=== PATIENT | female | born 1970 | race Caucasian/White ===

== ENCOUNTER → 2023-11-17 | Outpatient (CLI) | payer OTHER, SELFPAY ==
--- NOTE | 2023-11-17 11:49 | RAD_ITS ---
INDICATION: PAIN EXAMINATION/TECHNIQUE: X-RAY - XR Pelvis 1 or 2 Views COMPARISON: None. FINDINGS: PELVIC BONES: No displaced fracture, destructive or sclerotic lesions. Note that overlapping bowel shadows may however obscure fine detail. Sacroiliac joints are unremarkable. No widening of the pubic symphysis. HIPS: Hip joint spaces well-maintained bilaterally. No displaced fracture seen in this frontal view. SOFT TISSUES: No soft tissue swelling or gas. RAD/Pelvis 1 or 2 Views IMPRESSION: Unremarkable study. Electronically Signed: Micha Stock MD at 20:31 EDT ,
[2023-11-17 16:15] LABS: Absolute Lymphocyte Count 1.88 X10^3/uL (0.83-4.51); Absolute Neutrophil Count 3.3 X10^3/uL (2.0-7.7); Basophil# 0.05 X10^3/uL; Basophil% 0.9 % (0-1); Eosinophil# 0.06 X10^3/uL; Eosinophils% 1.1 % (0-5); Hematocrit 38.3 % (37-47); Hemoglobin 12.2 g/dL (12.0-15.0); Lymphocyte # 1.88 X10^3/ul (0.83-4.51); Lymphocyte % 33.7 % (19-41); Mean Corp Hgb Conc 31.9 g/dL (32-36); Mean Corpuscular Hgb 29.3 pg (27.0-32.0); Mean Corpuscular Volume 91.8 fL (81-99); Mean Platelet Vol. 10.4 fl (6.2-12.0); Monocyte# 0.31 X10^3/uL; Monocyte% 5.6 % (0-10); NRBC Flagged by Analyzer 0 % (0-5); Neutrophil # 3.26 X10^3/uL (2.7-7.7); Neutrophil % 58.3 % (47-70); Platelet Count 292 K/mm3 (150-450); RBC Distribution Width CV 13.8 % (11.6-14.6); RBC Distribution Width SD 46.5 fl (35.1-43.9); Red Blood Count 4.17 M/mm3 (4.2-5.4); White Blood Count 5.6 K/mm3 (4.4-11.0)
[2023-11-17 16:20] LABS: ALB/GLOB Ratio 1.2 RATIO (0.9-2.4); AST(SGOT) 13 U/L (15-37); Alanine Aminotransfer ALT/SGPT 20 U/L (13-56); Albumin, Serum 3.7 g/dL (3.2-5.0); Alkaline Phosphatase 54 U/L (45-117); Anion Gap 4 (5-15); BUN 14 mg/dL (7-18); BUN/Creat Ratio 20.6 RATIO (10-20); Calcium,Total 9.1 mg/dL (8.5-10.1); Chloride 106 mmol/L (98-107); Creatinine, Serum 0.68 mg/dL (0.55-1.02); EST Glomerular Filtration Rate 97 mL/min (>60); Est Glom Filt Rate - Afr Amer 117 mL/min (>60); Globulin 3.2 g/dL (2.2-4.2); Glucose 65 mg/dL (74-106); Potassium 3.8 mmol/L (3.5-5.1); Protein, Total 6.9 g/dL (6.4-8.2); Rheumatoid Factor < 10.0 IU/mL (<15); Sodium Level 140 mmol/L (136-145)
[2023-11-17 16:58] LABS: Hepatitis B Surface Antibody Non-Reactive; Hepatitis B Surface Antigen Non-Reactive (Nonreactive); Hepatitis C Antibody Non-Reactive (Nonreactive)
--- OUTSIDE RECORDS SUMMARY | 2023-11-17 19:32 | XMS RPT_ITS | CCD ---
Author Organization [facility] Care Team Providers Care Buffer Inflated Pad Name Role Phone Ryder LEWIS Admitting Unavailable Ryder LEWIS Primary Care Unavailable Ryder LEWIS Consulting Unavailable Ryder LEWIS Attending Unavailable PROVIDER, UNKNOWN Consulting Unavailable PROVIDER, UNKNOWN Consulting Unavailable PROVIDER, UNKNOWN Consulting Unavailable THAD FARIAS Admitting Unavailable THAD FARIAS Primary Care Unavailable THAD FARIAS Attending Unavailable Ryder LEWIS Consulting Unavailable PROVIDER, UNKNOWN Consulting Unavailable PROVIDER, UNKNOWN Consulting Unavailable PROVIDER, UNKNOWN Consulting Unavailable EMA RAGLAND Attending Patience vailable Ryder LEWIS MD Unavailable CARLOZ PÉREZ Unavailable [place] Unavailable Unavailable Bladimir WEI MD Unavailable Fran RIOS, Dayna Unavailable Unavailable TRISTON REY MD Unavailable Jennifer Shine Unavailable Unavailable JAREK TTAE, JIMENEZ Paulson Unavailable TANIA RIOS, ANAIS Unavailable Unavailable Laly RIOS, Sultana Unavailable Unavailab NISHANT Valiente Unavailable Unavailable EMA CARLSON Unavailable [phone] ANITRA WEI Unavailable Unavailable Michelle Wei Unavailable Unavailable ADOLFO ESPINO Unavailable Unavailable [place] Unavailable Unavailable Alea Pollard Unavailable Unavailable Alexandro Pollard Unavailable Unavailable Primo RIOS, An Unavailable Unavailable Unavailable Unavailable RHEUMATOLOGY, GENERAL Unavailable Unavailabl e Allergies Allergy Classification Reported Allergen(s) Allergy Type Date of Onset Reaction(s) Facility (14 sources) FLUoxetine Drug Allergy 06-15-2023 [facility]; [facility], [facility]. Medications Current Medications Medication Drug Class(es) Dates Sig (Normalized) Sig (Original) ALPRAZolam 0.25 mg oral tablet (14 sources) Benzodiazepine Start: 06-15-2023 Xanax 0.25 mg tablet ; 1 (one) Tablet daily as needed for 30 days Quantity: 30 {Tablet} Refills: 1 Ordered: 15-Jun-2023 AI KELLY Start: 15-Jun-2023 Comments: Medication taken as needed. Comment on above: Medication taken as needed. enalapril maleate 10 mg oral tablet (14 sources) Angiotensin Converting Enzyme Inhibitor Start: 09-21-2023 enalapril maleate 10 mg tablet ; 1 (one) Tablet 2 tabs in am and 1 tab in pm for 90 days Quantity: 270 {Tablet} Refills: 1 Ordered: 21-Sep-2023 AI KELLY Start: 21-Sep-2023 Start: 06-15-2023 enalapril male ate 10 mg tablet ; 1 (one) Tablet bid for 90 days Quantity: 180 {Tablet} Refills: 1 Ordered: 15-Jun-2023 AI KELLY Start: 15-Jun-2023 ferrous sulfate 44 mg/ml oral solution (14 sources) Iron Supplement 220 (44 Fe) MG/5ML Oral Elixir ; 2 TBSP daily (220 (44 Fe) MG/5ML) imipramine hydrochloride 50 mg oral tablet (14 sources) Tricyclic Antidepressant Start: 06-15-20 imipramine 50 mg tablet ; 1 (one) Tablet daily (at night) for 90 days Quantity: 90 {Tablet} Refills: 1 Ordered: 15-Jun-2023 AI KELLY Start: 15-Jun-2023 Magnesium Oxide (14 sources) Magnesium Oxide ; 2 daily MULTI VITAMIN DAILY (Oral Tablet) (14 sources) take 1 tablet by mouth once daily MULTI VITAMIN DAILY (Oral Tablet) ; 1 (one) daily Completed/Discontinued Medications Medication Drug Class(es) Dates Sig (Normalized) Sig (Original) Calcium Carbonate / Ergocalciferol (14 sources) Provitamin D2 Compound take 1 capsule by mouth once daily CALCIUM LIQUID, [id number] (PO Cap) ; 1 T daily (600-200 MG-IU) Status: Inactive cholecalciferol 0.01 mg / vitamin a 5000 unt oral capsule (14 sources) Vitamin A, Vitamin D Vitamin A & D Oral Capsule Status: Inactive doxycycline hyclate 100 mg oral capsule (14 sources) Tetracycline-clas s Drug Start: 10-07-2019 End: 10-17-2019 take 1 capsule by mouth twice daily Doxycycline Hyclate 100 MG Oral Capsule ; 1 (one) Capsule bid for 10 days Quantity: 20 {Capsule} Refills: 0 Ordered: 19-Dec-2019 MD Ryder LEWIS Start: 07-Oct-2019 End: 17-Oct-2019 Status: Inactive enalapril maleate 10 mg / hydroCHLOROthiazide 25 mg oral tablet (14 sources) Thiazide Diuretic, Angiotensin Converting Enzyme Inhibitor Start: 03-03-2020 End: 06-23-2020 take 0.5 tablet by mouth twice daily Vaseretic 10-25 MG Oral Tablet ; 1/2 (one half) Tablet bid for 60 days Quantity: 60 {Tablet} Refills: 3 Ordered: 23-Jun-2020 MD Ryder LEWIS Start: 03-Mar-2020 End: 23-Jun-2020 Status: Inactive FLUoxetine 10 mg oral tablet (20 sources) Serotonin Reuptake Inhibitor Start: 03-20-2015 End: 04-21-2015 take 1 tablet by mouth once daily FLUOXETINE HCL, 10MG (Oral Tablet) ; 1 (one) Tablet daily for 30 days Quantity: 30 {Tablet} Refills: 5 Ordered: 21-Apr-2015 ANITRA WEI Start: 20-Mar-2015 End: 21-Apr-2015 Status: Inactive Start: 02-24-2015 End: 03-20-2015 take 1 tablet by mouth once daily FLUOXETINE HCL, 20MG (Oral Tablet) ; one Tab daily for 30 days Quantity: 30 {Tablet} Refills: 5 Ordered: 20-Mar-2015 ANITRA WEI Start: 24-Feb-2015 End: 20-Mar-2015 Status: Inactive Comments: start after being on 10 mg for 10 days Comment on above: start after being on 10 mg for 10 days lidocaine hydrochloride 20 mg/ml mucous membrane topical solution (14 sources) Antiarrhythmic, Amide Local Anesthetic Start: 07-19-2017 End: 07-24-2017 Lidocaine Viscous 2 % Mouth/Throat Solution ; 5 Milliliter swish and spit q 4 hours prn sore throat for 5 days Quantity: 120 {Milliliter} Refills: 0 Ordered: 27-Jul-2017 MD Ryder LEWIS Start: 19-Jul-2017 End: 24-Jul-2017 Status: Inactive predniSONE 10 mg oral tablet (20 sources) Start: 02-02-2017 End: 02-14-2017 PredniSONE 10 MG Oral Tablet ; 4 Tablets days 1,2,3; 3 tablets days 4,5,6: 2 tablets days 7,8,9: 1 tablet days 10,11,12 for 12 days Quantity: 30 {Tablet} Refills: 0 Ordered: 20-Feb-2017 MD JIMENEZ TILLEY Start: 02-Feb-2017 End: 14-Feb-2017 Status: Inactive Dispense as Written Comments: Take with food. Start: 01-18-2013 End: 02-24-2015 take 4 tablets by mouth once daily, then take 3 tablets by mouth once daily, then take 2 tablets by mouth once daily, then take 1 tablet by mouth once daily PREDNISONE, 20MG (Oral Tablet) ; 4 Tablet per day for 2 days, then 3 per day for 3 days, then 2 per day for 2 days then 1 daily till gone for 0 days Quantity: 25 {Tablet} Refills: 0 Ordered: 24-Feb-2015 ANITRA WEI Start: 18-Jan-2013 End: 24-Feb-2015 Status: Inactive Comments: village Comment on above: Take with food. village Problems Active Problems Problem Classification Problem Date Documented Da te Episodic/Chronic Administrative/social admission (20 sources) Patient encounter status; Translations: [Counseling, unspecified] 12-19-2022 Episodic Allergic reactions (20 sources) Contact dermatitis due to poison hardeep; Translations: [Allergic contact dermatitis due to plants, except food] 02-02-2017 Episodic Anxiety disorders (20 sources) Anxiety; Translations: [Anxiety disorder, unspecified] 06-15-2023 Chronic Comment on above: occasional panic att ack Deficiency and other anemia (20 sources) Anemia; Translations: [Anemia, unspecified] 07-24-2020 Episodic Essential hypertension (20 sources) Essential (primary) hypertension; Translations: [Hypertensive disorder] Onset: 06-15-2023 Chronic Comment on above: Stable. Immunizations and screening for infectious disease (20 sources) Requires diphtheria, tetanus and pertussis vaccination; Translations: [Encounter for immunization] 07-24-2020 Episodic Malaise and fatigue (20 sources) Fatigue; Translations: [Other fatigue] 07-24-2020 Episodic Menstrual disorders (20 sources) Menorrhagia; Translations: [Excessive and frequent menstruation with regular cycle] 07-24-2020 Chronic Mood disorders (20 sources) Depressive disorder; Translations: [Acute depression] 07-24-2020 Chronic Comment on above: for 10 years, seeareli [place], [employer] controlled Other aftercare (20 sources) H/O: high risk medication; 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] 07-24-2020 Episodic Other female genital disorders (20 sources) Polyp of cervix; Translations: [Polyp of cervix uteri] 05-11-2022 Episodic Other gastrointestinal disorders (20 sources) Diarrhea of presumed infectious origin; Translations: [Diarrhea, unspecified] 03-09-2022 Episodic Other non-traumatic joint disorders (2 sources) Pain in unspecified joint; Translations: [Pain in unspecified joint] Onset: 06-15-2023 Episodic Other non-traumatic joint disorders (20 sources) Joint pain; Translations: [Pain in unspecified joint] 06-15-2023 Episodic Other nutritional; endocrine; and metabolic disorders (14 sources) Weight loss; Translations: [Abnormal weight loss] 12-22-2015 Episodic Other screening for suspected conditions (not mental disorders or infectious disease) (20 sources) Cancer cervix screening status; Translations: [Encounter for screening for malignant neoplasm of cervix] 05-11-2022 Episodic Other upper respiratory infections (20 sources) Acute upper respiratory infection, unspecified; Translations: [Sore throat symptom] Onset: 02-20-2023 07-24-2020 Episodic Residual codes; unclassified (20 sources) Family history of leukemia; Translations: [Family history of leukemia] 07-24-2020 Episodic Residual codes; unclassified (20 sources) History of gestational hypertension; Translations: [Personal history of other complications of , childbirth and the puerperium] 07-24-2020 Episodic Superficial injury; contusion (20 sources) Right lower leg contusion; Translations: [Contusion of right lower leg, initial encounter] 08-02-2021 Episodic Unclassified (14 sources) Abortions 07-24-2020 Comment on above: 0. Unclassified (14 sources) 07-24-2020 Comment on above: 3. Unclassified (14 sources) Para 07-24-2020 Comment on above: 3. Unclassified (14 sources) LAB DRAW - The labs drawn today include: CBC and CMP. The lab was drawn from the left antecubital vein. The lab was ordered by Dr. Lewis. 02-18-2020 Past or Other Problems Problem Classification Problem Date Documented Date Episodic/Chronic Headache; including migraine (20 sources) Headache; including migraine 06-15-2023 Leukemias (14 sources) Leukemias 11-20-2018 Mood disorders (20 sources) Mood disorders 06-15-2023 Other infections; including parasitic (14 sources) Personal history of other infectious and parasitic diseases Onset: 01-31-2022 03-09-2022 Episodic Comment on above: Likely BA-5 strain o f O[employer]ron; 01/2022 Unclassified (14 sources) !Patient notification of lab results - AI Booker. The test(s) that you had done were/was blood work. The results of your testing were normal . You should call our office if you have any questions. Please follow up as scheduled. Note for !Patient notification of lab results : Your labs were normal. However, with your pain we can refer to rheumatology or podiatry. Please let me know what you would like to do. Thanks! 06-16-2023 Unclassified (4 sources) Anxiety - Note for Anxiety: Needs refill of Xanax - takes approx once weekly 06-15-2023 Unclassified (10 sources) [ADDITIONAL REASON] HYPERTENSION - There has been no associated chest pain, dyspnea or edema. 12-19-2022 Unclassified (4 sources) Anxiety - Note for Anxiety: Takes Xanax on occasion (fliying) w/ relief. 07-20-2022 Unclassified (7 sources) [ADDITIONAL REASON] HYPERTENSION - There has been no associated chest pain or dyspnea. 07-20-2022 Unclassified (14 sources) !Patient notification of lab results - Dr. Lewis. The test(s) that you had done were/was a Cologuard. This was normal (negative). You should call our office if you have any questions. 06-09-2022 Unclassified (14 sources) !Patient notification of lab results - The test(s) that you had done were/was a pap test (screen for cervical cancer). The results of your testing were normal . You should call our office if you have any questions. 05-24-2022 Unclassified (14 sources) !Patient notification of lab results - Dr. Lewis. The test(s) that you had done were/was blood work (Your good cholesterol was 76 and your bad cholesterol was 86 (both of these are excellent).). You should call our office if you have any questions. 05-13-2022 Unclassified (14 sources) Physical examination - The patient is here for a annual physical.Her last menstrual period date was 05/05/2022. Note for Physical examination: Mammogram order given 03/2022, pt states does not have time to pursue this currently. Undecided if wishes to receive flu immunization today. Many years since last PAP. 05-11-2022 Unclassified (18 sources) HYPERTENSION - There has been no associated chest pain, dyspnea or edema. 12-01-2021 Unclassified (14 sources) [ADDITIONAL REASON] Anxiety - Note for Anxiety: Pt. states anxiety related symptoms are good right now. 12-01-2021 Unclassified (14 sources) !Patient notification of lab results - Dr. Lewis. The test(s) that you had done were/was blood work. The results of your testing were stable for your medical condition . 08-06-2021 Unclassified (14 sources) Leg pain - The onset of the leg pain has been acute. Note for Leg pain: Right lower leg pain. Bruised green area. It is sometimes painful and can be felt when walking. Did have superficial blood clot while in [place] the 1st week of july. What can she do to help it? not get them? 08-02-2021 Unclassified (20 sources) HYPERTENSION - There has been no associated chest pain or dyspnea. 06-09-2021 Unclassified (14 sources) !Patient notification of lab results - Dr. Lewis. The test(s) that you had done were/was blood work. The results of your testing were normal . You should call our office if you have any questions (If you would like to see your lab or test results, please sign up for our patient portal so you can view these online from your computer, tablet, or smartphone. If we don't already have your email address, for security reasons we require that to be given to our bilingual medical receptionist in person. Once we have your email address, we can send you simple instructions to create an account. Then you can access lab and test results as well as summaries of your visits online. The site is secure so no one else will see your health information. You can also request appointments and refills and send medical messages from the portal. We are excited to have this new technology and hope you will try it out.). 07-26-2020 Unclassified (14 sources) Sore throat - The onset of the sore throat has been acute and has been occurring for 1 day. The symptoms have been associated with change in voice, ear pain and runny nose. The sore throat is relieved by analgesics. The sore throat is aggravated by talking. 07-24-2020 Unclassified (14 sources) HYPERTENSION - Note for HYPERTENSION: Pt is feeling well. 06-23-2020 Unclassified (4 sources) Depressive Disorders - The last clinic visit was 8 month(s) ago. 12-23-2019 Unclassified (4 sources) [ADDITIONAL REASON] HYPERTENSION - The symptoms have been associated with headache (frequently), while the symptoms have not been associated with chest pain. Note for HYPERTENSION: checks BP at home and getting elevated readings. Increased Vaseretic 10-25 from 1/2 tab daily to twice daily since 11-16-19.Pulse ox at home was sometimes 92% with shortness of breath. BP readings and shortness of breath improved since increasing BP med. 12-23-2019 Unclassified (14 sources) Insect Bite/Sting 10-07-2019 Unclassified (10 sources) HYPERTENSION - Note for HYPERTENSION: Some headaches. No dizzy spells, swelling of ankles, chest pain or shortness of breath. No daily Cough. 04-02-2019 Unclassified (10 sources) [ADDITIONAL REASON] Anxiety - Note for Anxiety: Only takes when traveling by air 04-02-2019 Unclassified (14 sources) !Patient notification of lab results - Dr. Rey. The test(s) that you had done were/was blood work. The results of your testing were normal (anemia has resolved, red and white blood counts are completely normal) . Please note that we have included copies of your results (continue taking the higher dose iron supplement). 11-21-2018 Unclassified (14 sources) !Patient notification of lab results - Dr. Rey. The test(s) that you had done were/was an iron level, a CBC (checks for anemia and infection) and a CMP (kidneys, liver, nutrition, sugar). Your tests showed the following abnormalities: mild anemia with borderline low iron . Please adjust your therapy by doubling your present iron supplement. Take it daily. Please note that we have included copies of your results. 10-03-2018 Unclassified (10 sources) Anxiety - Note for Anxiety: Flying to [place] - needs Xanax refilled. 10-02-2018 Unclassified (13 sources) [ADDITIONAL REASON] Fatigue - Note for Fatigue: Concerned about iron level 10-02-2018 Unclassified (11 sources) [ADDITIONAL REASON] HYPERTENSION - Note for HYPERTENSION: Some headaces. No dizzy spells, swelling of ankles, chest pain or shortness of breath. No daily cough 10-02-2018 Unclassified (13 sources) HYPERTENSION - Note for HYPERTENSION: Some headaches (may be stress) No dizzy spells, swelling of ankles, chest pain or shortness of breath. No daily cough.. 03-20-2018 Unclassified (14 sources) sore throat - The onset of the sore throat has been acute and has been occurring for 2 days. The course has been improving. The symptoms have been associated with chills, difficulty in swallowing and swelling of neck glands. Note for sore throat: Here for exam. 07-19-2017 Unclassified (14 sources) Poison Hardeep - The onset of the rash has been acute and has been occurring for 1 week. The course has been increasing. The rash is characterized as itchy, red and weeping. The rash was first seen on the upper extremity. It spread to the face. 02-02-2017 Unclassified (14 sources) !Patient notification of lab results - Dash. The test(s) that you had done were/was an iron level, a CBC (checks for anemia and infection), a CMP (kidneys, liver, nutrition, sugar) and a TSH (thyroid). The results of your testing were normal . Please note that we have included copies of your results, continue your current medication/therapy and follow up as scheduled. 06-16-2016 Unclassified (14 sources) Anxiety - The course has been decreasing (doing well on her current dose. Rarely needs to take Xanax now.). Note for Anxiety: . 08-18-2015 Unclassified (14 sources) Rash - The rash has been occurring for 2 days. The rash was first seen on the neck. It spread to the face. Note for Rash: . 01-18-2013 Unclassified (10 sources) [ADDITIONAL REASON] Anxiety - Note for Anxiety: Needs refill of Xanax - takes approx once weekly 06-15-2023 Unclassified (10 sources) [ADDITIONAL REASON] Anxiety - Note for Anxiety: Takes Xanax on occasion (fliying) w/ relief. 07-20-2022 Unclassified (10 sources) HYPERTENSION - The symptoms have been associated with headache (frequently), while the symptoms have not been associated with chest pain. Note for HYPERTENSION: checks BP at home and getting elevated readings. Increased Vaseretic 10-25 from 1/2 tab daily to twice daily since 11-16-19.Pulse ox at home was sometimes 92% with shortness of breath. BP readings and shortness of breath improved since increasing BP med. 12-23-2019 Unclassified (10 sources) [ADDITIONAL REASON] Depressive Disorders - The last clinic visit was 8 month(s) ago. 12-23-2019 Unclassified (4 sources) Anxiety - Note for Anxiety: Only takes when traveling by air 04-02-2019 Unclassified (4 sources) [ADDITIONAL REASON] HYPERTENSION - Note for HYPERTENSION: Some headaches. No dizzy spells, swelling of ankles, chest pain or shortness of breath. No daily Cough. 04-02-2019 Unclassified (3 sources) HYPERTENSION - Note for HYPERTENSION: Some headaces. No dizzy spells, swelling of ankles, chest pain or shortness of breath. No daily cough 10-02-2018 Unclassified (4 sources) [ADDITIONAL REASON] Anxiety - Note for Anxiety: Flying to [place] - needs Xanax refilled. 10-02-2018 Unclassified (1 source) [ADDITIONAL REASON] HYPERTENSION - Note for HYPERTENSION: Some headaches (may be stress) No dizzy spells, swelling of ankles, chest pain or shortness of breath. No daily cough.. 03-20-2018 Unclassified (1 source) Fatigue - Note for Fatigue: Concerned about iron level 10-02-2018 Viral infection (14 sources) Disease caused by 2019-nCoV 03-09-2022 Results Test Name Value Interpretation Reference Range Facility ANAon 06-16-2023 Nuclear Ab IF (S) [Titer] 40 {titer} Normal Neg 40 [facility] ([place]) Comment on above: Result Comment: ANTONETTE Screen and Titer methodology is an immunofluorescent technique utilizing Hep2 Substrate. Performed By: #### C RP, URIC, GFR, CMP, ESR, RF, ANTONETTE #### [address] [address] RFon 06-16-2023 Rheumatoid Factor <6.0 Normal <=5.9 [facility] ([place]) Comment on above: Result Comment: RF I gM Antibody by Enzyme Immunoassay: Negative < or = 6 Positive > 6 A positive result indicates the presence of RF antibodies and suggests the possibility of rheumatoid arthritis. A negative result indicates no RF IgM antibody or levels below the negative cut-off of the assay. Results of this assay should be used in conjunction with clinical findings and other serological tests. These results were obtained with the [employer] QUANTA Lite RF IgM RIKKI. RF IgM values obtained with different manufacturers' assay methods may not be used interchangeably. The magnitude of the reported IgM levels cannot be correlated to an endpoint titer. Performed By: #### C RP, URIC, GFR, CMP, ESR, RF, ANTONETTE #### [address] [address] .GFRon 06-15-2023 GFR >60 Normal [facility] ([place]) Comment on above: Result Comment: GFR Population mean for , Non- Americans Ages 20-29 = 116 mL/min/1.73 sq.m. Ages 30-39 = 107 mL/min/1.73 sq.m. Ages 40-49 = 99 mL/min/1.73 sq.m. Ages 50-59 = 93 mL/min/1.73 sq.m. Ages 60-69 = 85 mL/min/1.73 sq.m. Ages 70+ = 75 mL/min/1.73 sq.m. Chronic Kidney Disease: Less than 60 mL/min/1.73 square meters End Stage Renal Disease: Less than 15 mL/min/1.73 square meters Performed By: #### C RP, URIC, GFR, CMP, ESR, RF, ANTONETTE #### [address] [address] GFR Non- >60 Normal [facility] ([place]) Comment on above: Result Comment: GFR Population mean for , Non- Americans Ages 20-29 = 116 mL/min/1.73 sq.m. Ages 30-39 = 107 mL/min/1.73 sq.m. Ages 40-49 = 99 mL/min/1.73 sq.m. Ages 50-59 = 93 mL/min/1.73 sq.m. Ages 60-69 = 85 mL/min/1.73 sq.m. Ages 70+ = 75 mL/min/1.73 sq.m. Chronic Kidney Disease: Less than 60 mL/min/1.73 square meters End Stage Renal Disease: Less than 15 mL/min/1.73 square meters Performed By: #### C RP, URIC, GFR, CMP, ESR, RF, ANTONETTE #### [address] [address] CMPon 06-15-2023 Albumin Level 4.4 G/dL Normal 3.2-4.8 [facility] ([place]) Comment on above: Performed By: #### C RP, URIC, GFR, CMP, ESR, RF, ANTONETTE #### [address] [address] Albumin/Globulin [Mass ratio] 1.4 {ratio} Normal 0.9 - 1.6 {ratio} [facility], [facility].; [facility], [facility]. Comment on above: Performed By: #### C RP, URIC, GFR, CMP, ESR, RF, ANTONETTE #### [address] [address] ALP [Catalytic activity/Vol] 77 U/L Normal 38 - 126 U/L [facility], [facility].; [facility], [employer]. Comment on above: Performed By: #### C RP, URIC, GFR, CMP, ESR, RF, ANTONETTE #### [address] [address] ALT [Catalytic activity/Vol] 13 U/L Normal 10-49 [facility] ([place]) Comment on above: Performed By: #### C RP, URIC, GFR, CMP, ESR, RF, ANTONETTE #### [address] [address] AST [Catalytic activity/Vol] 19 U/L Normal 8 - 34 U/L [facility].; [facility], [facility]. Comment on above: Performed By: #### C RP, URIC, GFR, CMP, ESR, RF, ANTONETTE #### [address] [address] Bili Total 0.40 mg/dL Normal 0.20-1.20 [facility] ([place]) Comment on above: Result Comment: Use of this assay is not recommended for patients undergoing treatment with eltrombopag due to the potential for falsely elevated results. Performed By: #### C RP, URIC, GFR, CMP, ESR, RF, ANTONETTE #### [place] [id number] BUN/Creatinine Ratio 20.6 ratio Normal 10.0-22.0 [facility] [facility] ([place]) Comment on above: Performed By: #### C RP, URIC, GFR, CMP, ESR, RF, ANTONETTE #### [address] [address] Calcium [Mass/Vol] 9.8 mg/dL Normal 8.7 - 10. 4 mg/dL [facility].; [facility], [facility]. Comment on above: Performed By: #### C RP, URIC, GFR, CMP, ESR, RF, ANTONETTE #### [address] [address] Chloride [Moles/Vol] 103 mmol/L Normal 98 - 11 0 meq/L [facility].; [facility], [facility]. Comment on above: Performed By: #### C RP, URIC, GFR, CMP, ESR, RF, ANTONETTE #### [address] [address] CO2 [Moles/Vol] 25 mmol/L Normal 22 - 32 meq/L [facility], [facility].; [facility], [facility]. Comment on above: Performed By: #### C RP, URIC, GFR, CMP, ESR, RF, ANTONETTE #### [address] [address] Creatinine [Mass/Vol] 0.68 mg/dL Normal 0.50 - 1.20 mg/dL [facility].; [facility]. Comment on above: Performed By: #### C RP, URIC, GFR, CMP, ESR, RF, ANTONETTE #### [address] [address] Electrolyte Balance 12.0 mEq/L Normal 4.0 - 15 .0 meq/L [facility].; [facility]. Comment on above: Performed By: #### C RP, URIC, GFR, CMP, ESR, RF, ANTONETTE #### [place] [id number] Globulin 3.2 G/dL Normal 1.5-3.8 [facility] ([place]) Comment on above: Performed By: #### C RP, URIC, GFR, CMP, ESR, RF, ANTONETTE #### [address] [address] Glucose [Mass/Vol] 95 mg/dL Normal 70 - 110 mg/dL [facility].; [facility]. Comment on above: Performed By: #### C RP, URIC, GFR, CMP, ESR, RF, ANTONETTE #### [address] [address] Potassium [Moles/Vol] 4.2 mmol/L Normal 3.5 - 5.0 meq/L [facility].; [facility], [facility]. Comment on above: Performed By: #### C RP, URIC, GFR, CMP, ESR, RF, ANTONETTE #### [address] [address] Sodium [Moles/Vol] 140 mmol/L Normal 136 - 145 meq/L [facility].; [facility], [facility]. Comment on above: Performed By: #### C RP, URIC, GFR, CMP, ESR, RF, ANTONETTE #### [place] [address] Total Protein 7.6 G/dL Normal 5.7-8.2 [facility] ([place]) Comment on above: Result Comment: No te - New Reference Range in effect 20 Performed By: #### C RP, URIC, GFR, CMP, ESR, RF, ANTONETTE #### [place] [address] Urea nitrogen [Mass/Vol] 14.0 mg/dL Normal 8.0 - 22.0 mg/dL [facility].; [facility]. Comment on above: Performed By: #### C RP, URIC, GFR, CMP, ESR, RF, ANTONETTE #### [place] [address] CRPon 06-15-2023 CRP [Mass/Vol] mg/L Normal 0.0 - 1.0 mg/dL [facility].; [facility]. Comment on above: Result Comment: No te - New Reference Range in effect 20 Performed By: #### C RP, URIC, GFR, CMP, ESR, RF, ANTONETTE #### [place] [address] ESRon 06-15-2023 Erythrocyte Sed Rate 13 mm/hr Normal 0-30 [facility] ([place]) Comment on above: Performed By: #### C RP, URIC, GFR, CMP, ESR, RF, ANTONETTE #### [place] [address] Laboratory - Chemistry and C hemistry - challengeon 06-15-2023 Albumin BCP dye [Mass/Vol] 4.4 g/dL Normal 3.2 - 4.8 g/dL [facility].; [facility], [facility]. ALT No additional P-5'-P [Catalytic activity/Vol] 13 U/L Normal 10 - 49 U/L [facility].; [facility] ALT With P-5'-P [Catalytic activity/Vol] 13 U/L Normal 10 - 49 U/L [facility]; [facility] AST With P-5'-P [Catalytic activity/Vol] 19 U/L Normal 8 - 34 U/L [facility]; [facility] Bilirubin [Mass/Vol] 0.40 mg/dL Normal 0.20 - 1.20 mg/dL [facility]; [facility] Globulin (S) [Mass/Vol] 3.2 g/dL Normal 1.5 - 3.8 g/dL [facility]; [facility] Magnesium [Mass/Vol] 3.2 mg/dL Normal 3.1 - 7 .8 mg/dL [facility]; [facility] Protein [Mass/Vol] 7.6 g/dL Normal 5.7 - 8.2 g/dL [facility]; [facility] Urea nitrogen/Creatinine [Mass ratio] 20.6 {ratio} Normal 10.0 - 22.0 {ratio} [facility]; [facility] Laboratory - Hematology and Cell countson 06-15-2023 ESR Photometric method (Bld) [Velocity] 13 mm/h Normal 0 - 30 mm/h [facility]; [facility] Laboratory - Serology - non- microon 06-15-2023 Nuclear Ab IF Ql (S) Neg 40-Neg 40 Normal E [facility]; [facility] Rheumatoid factor IgM IA Qn (S) <6.0 Normal [facility]; [facility] URICon 06-15-2023 Uric Acid Lvl 3.2 mg/dL Normal 3.1-7.8 [facility] ([place]) Comment on above: Result Comment: No te - New Reference Range in effect 20 Performed By: #### C RP, URIC, GFR, CMP, ESR, RF, ANTONETTE #### [place] [address] 36on 05-23-2023 36 Name of Caller: Guadalupe Contact Reason for Appointment: Pt has RA related symptoms and get based line testing done before it worsens Office Name: Rheum Medication Refills need, if any: NA Medication Name: NA Normal [facility] Laboratory - Chemistry and C hemistry - challengeon 05-11-2022 Cholesterol [Mass/Vol] 175 mg/dL Normal 50 - 199 mg/dL [employer] [facility] [employer] Cholesterol in HDL [Mass/Vol] 76 mg/dL Abnormal 40 - 59 mg/dL [employer].; [facility] [employer] [employer] Cholesterol in LDL [Mass/Vol] 86 mg/dL Normal 0 - 129 mg/dL [employer].; [facility] [employer] Triglyceride [Mass/Vol] 67 mg/dL Normal 3 - 149 mg/dL [employer].; [facility] [employer] No Panel Informationon 05-11 [employer] Cytology Report See Note Normal [employer] [facility] [employer] OVA & PARASITE EXAM [CCL]on 03-25-2022 OVA & PARASITE EXAM [CCL] Normal [facility] Comment on above: Result Comment: _OVA & PARASITE EXAM [CCL]_ Performed By: #### [id number] #### [facility],[address] [place] [id number] C DIFF COMPLETEon 03-10-2022 C DIFF COMPLETE C DIFF COMPLETE 0{ C-DIFF TOXIN _NEGATIVE__ (NRL: NEGATIVE ) 03/11/22.1105.KLS. C-DIFF AG NEGATIVE INTERNAL NEG QC PASS INTERNAL POS QC PASS EXTERNAL QC DONE? YES INTERPRETATION: POSITIVE Ag,POSITIVE Tox = C. Diff is present & producing toxins POSITIVE Ag,NEGATIVE Tox = C. Diff is present NEGATICE Ag,NEGATICE Tox = C. Diff is not present A low percentage of specimens may test negative for antigen but positive for toxin. A fresh specimen should be resumbitted for retesting. Normal [facility] Comment on above: Performed By: #### [id number] #### [facility],[address] [place] [address] CULTURE STOOLon 03-10-2022 CULTURE STOOL CULTURE STOOL _STOOL CULTURE_ CAMPYLOBACTER Not detected SALMONELLA Not Detected YERSINIA Not detected SHIGELLA Not Detected [id number] M I C R O B I O L O G Y R E P O R T FINAL Antimicrobial Susceptibility and Organism Identification Report Specimen Number : [id number] Requested : 03/10/22 Specimen Source : STOOL Collected : 03/10/22 13:57 [place] of Isolation : OUTPATIENT Received : 03/10/22 13:57 Requesting Physician : DEBBIE Walters Patient/Specimen Tests and Comments Specimen Comments FINAL REPORT: SALMONELLA:NEGATIVE SHIGELLA:NEGATIVE YERSINIA:NEGATIVE CAMPYLOBACTER:NEGATIVE Tech : ____ Source : STOOL ID # : [id number] FINAL Report Date : / / : Collected : 03/10/22 13:57 [id number] Normal [facility] Comment on above: Performed By: #### [id number] #### [facility],[address] [place] [address] Laboratory - Microbiology an d Antimicrobial susceptibilityon 03-10-2022 Bacteria identified Cx Nom (Stl) See Note Normal [facility].; [facility], [employer] C. difficile toxin A+B IA Ql (Stl) See Note Normal [facility], [facility].; [facility], [employer] No Panel Informationon 03-10 OVA Normal [facility], [employer].; [facility], [employer] Laboratory - Chemistry and C hemistry - challengeon 08-02-2021 Albumin BCP dye [Mass/Vol] 4.1 g/dL Normal 3.2 - 4.8 g/dL [facility], [facility].; [facility], [employer] Albumin/Globulin [Mass ratio] 1.5 {ratio} Normal 0.9 - 1.6 {ratio} [facility], [facility].; [facility], [employer] ALP [Catalytic activity/Vol] 64 U/L Normal 38 - 126 U/L [facility], [facility].; [facility], [facility]. ALT No additional P-5'-P [Catalytic activity/Vol] 12 U/L Normal 10 - 49 U/L [facility]; [facility]. ALT With P-5'-P [Catalytic activity/Vol] 12 U/L Normal 10 - 49 U/L [facility]. AST [Catalytic activity/Vol] 13 U/L Normal 8 - 34 U/L [facility].; [facility]. AST With P-5'-P [Catalytic activity/Vol] 13 U/L Normal 8 - 34 U/L [facility].; [facility], [facility]. Bilirubin [Mass/Vol] 0.50 mg/dL Normal 0.20 - 1.20 mg/dL [facility]; [facility] Calcium [Mass/Vol] 9.1 mg/dL Normal 8.7 - 10. 4 mg/dL [facility]; [facility], [facility]. Chloride [Moles/Vol] 109 mmol/L Normal 98 - 11 0 meq/L [facility]; [facility], [facility]. CO2 [Moles/Vol] 27 mmol/L Normal 22 - 32 meq/L [facility]; [facility], [facility] Creatinine [Mass/Vol] 0.77 mg/dL Normal 0.50 - 1.20 mg/dL [facility].; [facility], [facility]. Globulin (S) [Mass/Vol] 2.8 g/dL Normal 1.5 - 3.8 g/dL [facility]; [facility], [facility]. Glucose [Mass/Vol] 92 mg/dL Normal 70 - 110 mg/dL [facility]; [facility], [facility] Potassium [Moles/Vol] 4.3 mmol/L Normal 3.5 - 5.0 meq/L [facility]; [facility] Protein [Mass/Vol] 6.9 g/dL Normal 5.7 - 8.2 g/dL [facility]; [facility] Sodium [Moles/Vol] 138 mmol/L Normal 136 - 145 meq/L [facility]; [facility] Urea nitrogen [Mass/Vol] 8.0 mg/dL Normal 8.0 - 22.0 mg/dL [facility]; [facility] Urea nitrogen/Creatinine [Mass ratio] 10.4 {ratio} Normal 10.0 - 22.0 {ratio} [facility]; [facility] Laboratory - Hematology and Cell countson 08-02-2021 Erythrocyte distribution width (RBC) [Ratio] 14.1 % Normal 11.5 - 15.5 % [facility]; [facility] Hematocrit (Bld) [Volume fraction] 40.9 % Normal 34.0 - 46.0 % [facility]; [facility] Hemoglobin (Bld) [Mass/Vol] 13.5 g/dL Normal 12.0 - 16.0 g/dL [facility]; [facility] MCH (RBC) [Entitic mass] 29.2 pg Normal 27.0 - 33.0 pg [facility]; [facility] MCHC (RBC) [Mass/Vol] 33.1 g/dL Normal 32.0 - 36.0 g/dL [facility]; [facility] MCV (RBC) [Entitic vol] 88.1 fL Normal 80.0 - 99.0 fL [facility]; [facility] Platelet mean volume (Bld) [Entitic vol] 8.9 fL Normal 6.6 - 10.5 fL [facility].; [facility], [facility] Platelets (Bld) [#/Vol] 289 {10^3/mcL} Normal 150 - 450 {10^3/mcL} [facility].; [facility], [facility] RBC (Bld) [#/Vol] 4.64 {10^6/mcL} Normal 4.10 - 5.30 {10^6/mcL} [facility].; [facility], [facility] WBC (Bld) [#/Vol] 5.70 {10^3/mcL} Normal 4.50 - 10.80 {10^3/mcL} [facility].; [facility], [facility] No Panel Informationon 08-02 Electrolyte Balance 2.0 meq/L Abnormal 4.0 - 15 .0 meq/L [facility]; [facility], [facility] Laboratory - Chemistry and C hemistry - challengeon 07-24-2020 Calcium [Mass/Vol] 9.8 mg/dL Normal 8.7 - 10. 4 mg/dL [facility]; [facility], [facility]. Chloride [Moles/Vol] 107 mmol/L Normal 98 - 11 0 meq/L [facility]; [facility], [facility] CO2 [Moles/Vol] 29 mmol/L Normal 22 - 32 meq/L [facility], [facility].; [facility], [facility] Creatinine [Mass/Vol] 0.74 mg/dL Normal 0.50 - 1.20 mg/dL [facility].; [facility], [facility]. Glucose [Mass/Vol] 92 mg/dL Normal 70 - 110 mg/dL [facility].; [facility], [facility]. Potassium [Moles/Vol] 4.1 mmol/L Normal 3.5 - 5.0 meq/L [facility].; [facility], [employer] Sodium [Moles/Vol] 141 mmol/L Normal 136 - 145 meq/L [facility].; [facility] Urea nitrogen [Mass/Vol] 11.0 mg/dL Normal 8.0 - 22.0 mg/dL [facility].; [facility] Urea nitrogen/Creatinine [Mass ratio] 14.9 {ratio} Normal 10.0 - 22.0 {ratio} [facility].; [facility] Laboratory - Microbiology an d Antimicrobial susceptibilityon 07-24-2020 S. pneumoniae Ag LA Ql (Unsp spec) Negative Normal [facility]; [facility]. No Panel Informationon 07-24 Electrolyte Balance 5.0 meq/L Normal 4.0 - 15 .0 meq/L [facility] Laboratory - Chemistry and C hemistry - challengeon 02-18-2020 Albumin BCP dye [Mass/Vol] 4.2 g/dL Normal 3.2 - 4.8 g/dL [facility].; [facility], [facility]. Albumin/Globulin [Mass ratio] 1.9 {ratio} Abnormal 0.9 - 1.6 {ratio} [facility].; [facility], [facility]. ALP [Catalytic activity/Vol] 45 U/L Normal 38 - 126 U/L [facility].; [facility], [facility]. ALT No additional P-5'-P [Catalytic activity/Vol] 10 U/L Normal 10 - 49 U/L [facility].; [facility], [facility]. ALT With P-5'-P [Catalytic activity/Vol] 10 U/L Normal 10 - 49 U/L [facility].; [facility], [facility]. AST [Catalytic activity/Vol] 15 U/L Normal 8 - 34 U/L [facility].; [facility], [facility]. AST With P-5'-P [Catalytic activity/Vol] 15 U/L Normal 8 - 34 U/L [facility]; [facility] Bilirubin [Mass/Vol] 0.50 mg/dL Normal 0.20 - 1.20 mg/dL [facility]; [facility] Calcium [Mass/Vol] 9.3 mg/dL Normal 8.7 - 10. 4 mg/dL [facility]; [facility] Chloride [Moles/Vol] 104 mmol/L Normal 98 - 11 0 meq/L [facility]; [facility] CO2 [Moles/Vol] 29 mmol/L Normal 22 - 32 meq/L [facility]; [facility] Creatinine [Mass/Vol] 0.76 mg/dL Normal 0.50 - 1.20 mg/dL [facility]; [facility] Globulin (S) [Mass/Vol] 2.2 g/dL Normal 1.5 - 3.8 g/dL [facility]; [facility] Glucose [Mass/Vol] 99 mg/dL Normal 70 - 110 mg/dL [facility]; [facility] Potassium [Moles/Vol] 3.8 mmol/L Normal 3.5 - 5.0 meq/L [facility]; [facility] Protein [Mass/Vol] 6.4 g/dL Normal 5.7 - 8.2 g/dL [facility]; [facility] Sodium [Moles/Vol] 137 mmol/L Normal 136 - 145 meq/L [facility]; [facility], [facility] Urea nitrogen [Mass/Vol] 15.0 mg/dL Normal 8.0 - 22.0 mg/dL [facility]; [facility] Urea nitrogen/Creatinine [Mass ratio] 19.7 {ratio} Normal 10.0 - 22.0 {ratio} [facility] Laboratory - Hematology and Cell countson 02-18-2020 Erythrocyte distribution width (RBC) [Ratio] 14.6 % Normal 11.5 - 15.5 % [facility].; [facility], [facility] Hematocrit (Bld) [Volume fraction] 37.1 % Normal 34.0 - 46.0 % [facility].; [facility], [facility] Hemoglobin (Bld) [Mass/Vol] 12.7 g/dL Normal 12.0 - 16.0 g/dL [facility].; [facility], [facility]. MCH (RBC) [Entitic mass] 30.1 pg Normal 27.0 - 33.0 pg [facility].; [facility]. MCHC (RBC) [Mass/Vol] 34.3 g/dL Normal 32.0 - 36.0 g/dL [facility].; [facility], [facility]. MCV (RBC) [Entitic vol] 87.8 fL Normal 80.0 - 99.0 fL [facility].; [facility] Platelet mean volume (Bld) [Entitic vol] 8.1 fL Normal 6.6 - 10.5 fL [facility].; [facility], [facility]. Platelets (Bld) [#/Vol] 268 {10^3/mcL} Normal 150 - 450 {10^3/mcL} [facility] [place].; [facility], [facility]. RBC (Bld) [#/Vol] 4.22 {10^6/mcL} Normal 4.10 - 5.30 {10^6/mcL} [facility] [place].; [facility], [facility]. WBC (Bld) [#/Vol] 4.50 {10^3/mcL} Normal 4.50 - 10.80 {10^3/mcL} [facility]; [facility] No Panel Informationon 02-17 Electrolyte Balance 4.0 meq/L Normal 4.0 - 15 .0 meq/L [facility]; [facility] Laboratory - Chemistry and C hemistry - challengeon 11-20-2018 Cobalamin (Vitamin B12) [Mass/Vol] 998 pg/mL Abnormal 211 - 911 pg/mL [facility]; [facility] Folate [Mass/Vol] 22.4 ng/mL Abnormal 1.1 - 20.0 ng/mL [facility]; [facility] TSH Qn 1.440 m[IU]/L Normal 0.360 - 3.740 {mcIU/mL} [facility]; [facility] Laboratory - Hematology and Cell countson 11-20-2018 Erythrocyte distribution width (RBC) [Ratio] 16.2 % Abnormal 11.5 - 15.5 % [facility]; [facility] Hematocrit (Bld) [Volume fraction] 38.2 % Normal 34.0 - 46.0 % [facility]; [facility] Hemoglobin (Bld) [Mass/Vol] 12.7 g/dL Normal 12.0 - 16.0 g/dL [facility]; [facility] Immature reticulocytes/Total reticulocytes (Bld) 0.41 {IRF} Normal 0.20 - 0.46 {IRF} [facility]; [facility] MCH (RBC) [Entitic mass] 27.5 pg Normal 27.0 - 33.0 pg [facility].; [facility], [facility]. MCHC (RBC) [Mass/Vol] 33.3 g/dL Normal 32.0 - 36.0 g/dL [facility].; [facility], [employer] MCV (RBC) [Entitic vol] 82.8 fL Normal 80.0 - 99.0 fL [facility] [place].; [facility]. Platelet mean volume (Bld) [Entitic vol] 9.0 fL Normal 6.6 - 10.5 fL [facility].; [facility], [employer]. Platelets (Bld) [#/Vol] 311 {10^3/mcL} Normal 150 - 450 {10^3/mcL} [facility], [place].; [facility], [employer] RBC (Bld) [#/Vol] 4.62 {10^6/mcL} Normal 4.10 - 5.30 {10^6/mcL} [facility], [place].; [facility], [employer]. WBC (Bld) [#/Vol] 6.70 {10^3/mcL} Normal 4.50 - 10.80 {10^3/mcL} [facility], [place].; [facility], [employer]. No Panel Informationon 11-20 Reticulocytes, Absolute 56.5 {10^3/mcL} Normal 8.0 - 108.0 {10^3/mcL} [facility], [place].; [facility], [employer]. Reticulocytes, Auto 1.2 % Normal 0.2 - 2.3 % [facility], [place].; [facility] [employer] [facility], [place]. Laboratory - Chemistry and C hemistry - challengeon 10-02-2018 Albumin BCP dye [Mass/Vol] 4.0 g/dL Normal 3.2 - 4.8 g/dL [facility], [place].; [facility] [employer] [facility] [place], [employer]. Albumin/Globulin [Mass ratio] 1.3 {ratio} Normal 0.9 - 1.6 {ratio} [facility], [place].; [facility] [employer] [facility] [place], [employer]. ALP [Catalytic activity/Vol] 57 U/L Normal 38 - 126 U/L [facility], [place].; [facility] [employer] [facility] [place], [employer]. ALT No additional P-5'-P [Catalytic activity/Vol] 18 U/L Normal 10 - 49 U/L [facility].; [facility]. ALT With P-5'-P [Catalytic activity/Vol] 18 U/L Normal 10 - 49 U/L [facility].; [facility]. AST [Catalytic activity/Vol] 14 U/L Normal 8 - 34 U/L [facility].; [facility]. AST With P-5'-P [Catalytic activity/Vol] 14 U/L Normal 8 - 34 U/L [facility] Bilirubin [Mass/Vol] 0.3 mg/dL Normal 0.2 - 1 .2 mg/dL [facility]; [facility] Calcium [Mass/Vol] 8.9 mg/dL Normal 8.4 - 10. 1 mg/dL [facility]; [facility] Chloride [Moles/Vol] 106 mmol/L Normal 98 - 11 0 meq/L [facility]; [facility] CO2 [Moles/Vol] 26 mmol/L Normal 22 - 32 meq/L [facility]; [facility] Creatinine [Mass/Vol] 0.74 mg/dL Normal 0.50 - 1.20 mg/dL [facility] Globulin (S) [Mass/Vol] 3.1 g/dL Normal 1.5 - 3.8 g/dL [facility].; [facility]. Glucose [Mass/Vol] 76 mg/dL Normal 70 - 110 mg/dL [facility] Iron [Mass/Vol] 38 ug/dL Normal 37 - 170 ug/dL [facility] Potassium [Moles/Vol] 3.8 mmol/L Normal 3.5 - 5.0 meq/L [facility]; [facility] Protein [Mass/Vol] 7.1 g/dL Normal 6.0 - 8.5 g/dL [facility]; [facility] Sodium [Moles/Vol] 140 mmol/L Normal 136 - 145 meq/L [facility]; [facility] Urea nitrogen [Mass/Vol] 12.0 mg/dL Normal 8.0 - 22.0 mg/dL [facility]; [facility] Urea nitrogen/Creatinine [Mass ratio] 16.2 {ratio} Normal 10.0 - 22.0 {ratio} [facility]; [facility] Laboratory - Hematology and Cell countson 10-02-2018 Erythrocyte distribution width (RBC) [Ratio] 15.4 % Normal 11.5 - 15.5 % [facility]; [facility] Hematocrit (Bld) [Volume fraction] 35.6 % Normal 34.0 - 46.0 % [facility]; [facility] Hemoglobin (Bld) [Mass/Vol] 11.8 g/dL Abnormal 12.0 - 16.0 g/dL [facility]; [facility] MCH (RBC) [Entitic mass] 27.5 pg Normal 27.0 - 33.0 pg [facility]; [facility] MCHC (RBC) [Mass/Vol] 33.0 g/dL Normal 32.0 - 36.0 g/dL [facility]; [facility] MCV (RBC) [Entitic vol] 83.1 fL Normal 80.0 - 99.0 fL [facility]; [facility] Platelet mean volume (Bld) [Entitic vol] 9.1 fL Normal 6.6 - 10.5 fL [facility]; [facility], [facility] Platelets (Bld) [#/Vol] 282 {10^3/mcL} Normal 150 - 450 {10^3/mcL} [facility].; [facility], [facility]. RBC (Bld) [#/Vol] 4.29 {10^6/mcL} Normal 4.10 - 5.30 {10^6/mcL} [facility].; [facility], [facility]. WBC (Bld) [#/Vol] 6.20 {10^3/mcL} Normal 4.50 - 10.80 {10^3/mcL} [facility].; [facility], [employer]. No Panel Informationon 10-02 Electrolyte Balance 8.0 meq/L Normal 4.0 - 15 .0 meq/L [facility].; [facility] Laboratory - Microbiology an d Antimicrobial susceptibilityon 07-19-2017 S. pneumoniae Ag LA Ql (Unsp spec) Negative Normal [facility].; [facility], [facility]. Laboratory - Chemistry and C hemistry - challengeon 06-14-2016 Albumin [Mass/Vol] 1.9 g/dL Abnormal 0.9 - 1.6 [facility].; [facility], [facility]. Albumin [Mass/Vol] 4.2 g/dL Normal 3.4 - 4.8 g/dL [facility].; [facility], [facility]. ALT [Catalytic activity/Vol] 9 U/L Normal 8 - 35 U/L [facility].; [facility], [employer]. ALT No additional P-5'-P [Catalytic activity/Vol] 9 U/L Normal 8 - 35 U/L [facility].; [facility], [employer] Anion gap [Moles/Vol] 12 mmol/L Normal 10 - 2 0 mmol/L [facility].; [facility], [employer]. AST [Catalytic activity/Vol] 12 U/L Abnormal 13 - 39 U/L [facility] Bilirubin [Mass/Vol] 0.4 mg/dL Normal 0.0 - 1 .5 mg/dL [facility].; [facility], [facility] Calcium [Mass/Vol] 9.1 mg/dL Normal 8.6 - 10. 2 mg/dL [facility]; [facility] Chloride [Moles/Vol] 101 mmol/L Normal 98 - 10 7 mmol/L [facility]; [facility] CO2 [Moles/Vol] 29.0 mmol/L Normal 21.0 - 31.0 mmol/L [facility]; [facility] Creatinine [Mass/Vol] 0.7 mg/dL Normal 0.6 - 1.2 mg/dL [facility]; [facility], [facility] GFR/1.73 sq M.predicted among blacks MDRD (S/P/Bld) [Vol rate/Area] mL/min/{1.73_m2} Normal 60 - 999 {ML/MINUTE} [facility].; [facility]. GFR/1.73 sq M.predicted MDRD (S/P/Bld) [Vol rate/Area] mL/min/{1.73_m2} Normal 60 - 999 {ML/MINUTE} [facility] Globulin (S) [Mass/Vol] 2.2 g/dL Normal 1.5 - 3.8 g/dL [facility]; [facility], [facility]. Glucose [Mass/Vol] 103 mg/dL Normal 74 - 106 mg/dL [facility].; [facility], [facility] Iron [Mass/Vol] 124 ug/dL Normal 50 - 170 ug/dL [facility].; [facility], [employer] Potassium [Moles/Vol] 3.8 mmol/L Normal 3.5 - 5.1 mmol/L [facility]; [facility] Protein [Mass/Vol] 6.4 g/dL Normal 6.4 - 8.3 g/dL [facility]; [facility] Sodium [Moles/Vol] 138 mmol/L Normal 136 - 145 mmol/L [facility]; [facility] TSH Qn 1.65 m[IU]/L Normal 0.34 - 5.60 {uIU/ml} [facility]; [facility] Urea nitrogen [Mass/Vol] 11 mg/dL Normal 6 - 20 mg/dL [facility]; [facility] Urea nitrogen/Creatinine [Mass ratio] 16 {ratio} Normal 0 - 30 {ratio} [facility] Laboratory - Hematology and Cell countson 06-14-2016 Basophils (Bld) [#/Vol] 0.10 {x10EE3/UL} Normal 0.00 - 0.10 {x10EE3/UL} [facility]; [facility], [facility] Basophils/100 WBC (Bld) 1.5 % Normal 0.0 - 2.0 % [facility]; [facility] CBC panel Auto (Bld) Normal [facility]; [facility] Eosinophils (Bld) [#/Vol] 0.10 {x10EE3/UL} Normal 0.00 - 0.50 {x10EE3/UL} [facility] Eosinophils/100 WBC (Bld) 1.0 % Normal 0.0 - 7.0 % [facility]; [facility] Erythrocyte distribution width (RBC) [Ratio] 15.0 % Normal 12.0 - 15.6 % [facility].; [facility], [facility]. Hematocrit (Bld) [Volume fraction] 36.5 % Normal 34.0 - 46.0 % [facility].; [facility], [facility] Hemoglobin (Bld) [Mass/Vol] 12.5 g/dL Normal 12.0 - 16.0 g/dL [facility].; [facility], [facility] Lymphocytes (Bld) [#/Vol] 1.50 {x10EE3/UL} Normal 0.80 - 2.80 {x10EE3/UL} [facility].; [facility], [facility] Lymphocytes/100 WBC (Bld) 21.2 % Normal 20.0 - 45.0 % [facility], [facility].; [facility], [facility]. MCH (RBC) [Entitic mass] 29 pg Normal 27 - 33 pg [facility].; [facility], [facility]. MCHC (RBC) [Mass/Vol] 34 {X10_3} Normal 32 - 3 6 {X10_3} [facility].; [facility], [facility]. MCV (RBC) [Entitic vol] 83 fL Normal 80 - 99 fL [facility].; [facility], [facility]. Monocytes (Bld) [#/Vol] 0.30 {x10EE3/UL} Normal 0.20 - 1.00 {x10EE3/UL} [facility].; [facility], [facility]. Monocytes/100 WBC (Bld) 4.9 % Normal 0.0 - 10.0 % [facility].; [facility], [facility] Morphology Jonas (Bld) [Interp] N/A Normal [facility].; [facility], [facility] Neutrophils (Bld) [#/Vol] 5.10 {x10EE3/UL} Normal 1.50 - 7.10 {x10EE3/UL} [facility].; [facility] [employer] [facility] [place], [employer]. Neutrophils/100 WBC (Bld) 71.4 % Normal 46.0 - 76.0 % [facility] [place].; [facility] [employer] [facility] [place], [employer]. Platelet mean volume (Bld) [Entitic vol] 9.6 fL Normal 6.6 - 10.5 fL [facility], [place].; [facility] [employer] [facility] [place], [facility]. Platelets (Bld) [#/Vol] 281 {x10EE3/UL} Normal 150 - 450 {x10EE3/UL} [facility], [place].; [facility] [employer] [facility] [place], [employer]. RBC (Bld) [#/Vol] 4.37 {x_10EE6/UL} Normal 4.10 - 5.30 {x_10EE6/UL} [facility] [place].; [facility] [employer] [facility] [place], [employer]. WBC (Bld) [#/Vol] 7.1 {x_10EE3/UL} Normal 4.5 - 10.8 {x_10EE3/UL} [facility] [place].; [facility] [employer] [facility] [place], [employer]. No Panel Informationon 06-14 AGE 46 {years} Normal [facility] [employer].; [facility] [employer] [facility] [place]. ALK PHOS 40 U/L Normal 38 - 126 U/L [facility] [employer] [facility] [place].; [facility] [employer] [facility] [place], [employer]. CMP with eGFR Normal [facility] [employer] [facility] [place].; [facility] [employer] [facility] [place], [employer]. MANUAL DIFF N/A Normal [facility] [employer].; [facility] [employer] [facility] [place], [employer]. Vital Signs Date Time Vital Sign Value Performing Clinician Facility 06-15-2023 14:02-0500 Body height 162.56 cm Sultana Ruffin RN [facility] [employer].; [facility] [employer]. 06-15-2023 14:02-0500 Body mass index (BMI) [Ratio] 26.43 kg/m2 Sultana Ruffin RN [facility] [employer] [facility] [place].; [facility] [employer] [facility] [place]. 06-15-2023 14:02-0500 Body surface area Derived from formula 1.75 m2 Sultana Ruffin RN [facility].; [facility]. 06-15-2023 14:02-0500 Body temperature 98.4 [degF] Sultana Ruffin RN [facility].; [facility], [employer]. Comment on above: Method: Oral 06-15-2023 14:02-0500 Body weight 69.85 kg Sultana Ruffin RN [facility].; [facility]. 06-15-2023 14:02-0500 Diastolic blood pressure 89 mm[Hg] Sultana Ruffin RN [facility].; [facility]. Comment on above: Patient Position: Sitting; Cuff Location : Left Arm; Cuff Size: Large 06-15-2023 14:02-0500 Heart rate 80 /min Sultana Ruffin RN [facility].; [facility]. Comment on above: Pattern: Regular 06-15-2023 14:02-0500 Inhaled oxygen concentration 21 % Sultana Ruffin RN [facility].; [facility] [employer] [facility] [place]. Comment on above: Room air 06-15-2023 14:02-0500 SaO2% (BldA) [Mass fraction] 99 % Sultana Ruffin RN [facility].; [facility]. 06-15-2023 14:02-0500 Systolic blood pressure 128 mm[Hg] Sultana Ruffin RN [facility] [employer] [facility] [place].; [facility] [employer] [facility] [place]. Comment on above: Patient Position: Sitting; Cuff Location : Left Arm; Cuff Size: Large 12-19-2022 10:08-0400 Body height 162.56 cm Jennifer COREA [facility] [employer] [facility], [place].; [facility]. 12-19-2022 10:08-0400 Body mass index (BMI) [Ratio] 26.02 kg/m2 Jennifer Woodruff [facility].; [facility], [employer] 12-19-2022 10:08-0400 Body surface area Derived from formula 1.74 m2 Jennifer Woodruff [facility], [facility].; [facility], [employer] 12-19-2022 10:08-0400 Body weight 68.77 kg Jennifer Woodruff [facility], [facility].; [facility], [employer] 12-19-2022 10:08-0400 Diastolic blood pressure 79 mm[Hg] Jennifer Woodruff [facility].; [facility], [employer] Comment on above: Patient Position: Sitting; Cuff Location : Left Arm; Cuff Size: Standard 12-19-2022 10:08-0400 Heart rate 88 /min Jennifer Woodruff [facility], [facility].; [facility], [employer] Comment on above: Pattern: Regular 12-19-2022 10:08-0400 Systolic blood pressure 113 mm[Hg] Jennifer Woodruff [facility], [facility].; [facility], [facility]. Comment on above: Patient Position: Sitting; Cuff Location : Left Arm; Cuff Size: Standard 07-20-2022 10:09-0500 Body height 162.56 cm ANAIS MARIN RN [facility], [employer] 07-20-2022 10:09-0500 Body mass index (BMI) [Ratio] 26.78 kg/m2 ANAIS GRATE BLANCA [facility], [facility].; [facility], [employer] 07-20-2022 10:09-0500 Body surface area Derived from formula 1.76 m2 ANAIS GRATE BLANCA [facility], [facility].; [facility] [employer] [facility] [place], [employer] 07-20-2022 10:09-0500 Body weight 70.76 kg ANAIS GRATE BLANCA [facility], [facility].; [facility], [employer] 07-20-2022 10:09-0500 Diastolic blood pressure 88 mm[Hg] ANAIS GRATE BLANCA [facility], [facility], [employer]. Comment on above: Patient Position: Sitting; Cuff Location : Left Arm; Cuff Size: Standard 07-20-2022 10:09-0500 Heart rate 91 /min ANAIS GRATE BLANCA [facility], [facility].; [facility], [employer] Comment on above: Pattern: Regular 07-20-2022 10:09-0500 Systolic blood pressure 123 mm[Hg] ANAIS GRATE BLANCA [facility], [facility].; [facility], [employer] Comment on above: Patient Position: Sitting; Cuff Location : Left Arm; Cuff Size: Standard 05-11-2022 15:10-0500 Body height 162.56 cm ANAIS MARIN RN [facility].; [facility], [employer] 05-11-2022 15:10-0500 Body mass index (BMI) [Ratio] 25.23 kg/m2 ANAIS GRATE BLANCA [facility], [employer].; [facility], [employer] 05-11-2022 15:10-0500 Body surface area Derived from formula 1.72 m2 ANAIS MARIN RN [facility], [employer].; [facility], [employer] 05-11-2022 15:10-0500 Body weight 66.68 kg ANAIS GRATE BLANCA [facility].; [facility], [employer] 05-11-2022 15:10-0500 Diastolic blood pressure 85 mm[Hg] ANAIS GRATE BLANCA [facility], [employer].; [facility] [employer] [facility] [place], [employer]. Comment on above: Patient Position: Sitting; Cuff Location : Left Arm; Cuff Size: Standard 05-11-2022 15:10-0500 Heart rate 88 /min ANAIS GRATE BLANCA [facility], [employer].; [facility] [employer] [facility] [place], [employer]. Comment on above: Pattern: Regular 05-11-2022 15:10-0500 Systolic blood pressure 128 mm[Hg] ANAIS GRATE BLANCA [facility], [employer].; [facility] [employer] [facility] [place], Inc[employer] Comment on above: Patient Position: Sitting; Cuff Location : Left Arm; Cuff Size: Standard 03-09-2022 10:18-0400 Body height 162.56 cm Ryder LEWIS MD Work Phone: [facility] Hospital[facility]; [facility]. 03-09-2022 10:18-0400 Body mass index (BMI) [Ratio] 25.23 kg/m2 Ryder LEWIS MD Work Phone: [facility]; [facility]. 03-09-2022 10:18-0400 Body surface area Derived from formula 1.72 m2 Ryder LEWIS MD Work Phone: [facility]; [facility] 03-09-2022 10:18-0400 Body weight 66.68 kg Ryder LEWIS MD Work Phone: [facility] [employer] [facility] [place]; [facility]. 03-09-2022 10:18-0400 Diastolic blood pressure 88 mm[Hg] Ryder LEWIS MD Work Phone: [facility]; [facility]. Comment on above: Patient Position: Sitting; Cuff Location : Left Arm; Cuff Size: Standard 03-09-2022 10:18-0400 Heart rate 93 /min Ryder LEWIS MD Work Phone: [facility] [employer] [facility] [place]; [facility] [employer] [facility] [place] Comment on above: Pattern: Regular 03-09-2022 10:18-0400 Systolic blood pressure 123 mm[Hg] Ryder LEWIS MD Work Phone: [facility] [employer] [facility] [place]; [facility] [employer] [facility] [place]. Comment on above: Patient Position: Sitting; Cuff Location : Left Arm; Cuff Size: Standard 12-01-2021 15:24-0400 Body height 162.56 cm Ryder LEWIS MD Work Phone: [facility] [employer] [facility] [place]; [facility] [employer] [facility] [place]. 12-01-2021 15:24-0400 Body mass index (BMI) [Ratio] 24.89 kg/m2 Ryder LEWIS MD Work Phone: [facility] [employer] [facility] [place].; [facility] [employer] [facility] [place]. 12-01-2021 15:24-0400 Body surface area Derived from formula 1.71 m2 Ryder LEWIS MD Work Phone: [facility] [employer] [facility] [place].; [facility] [employer] [facility] [place]. 12-01-2021 15:24-0400 Body weight 65.77 kg Ryder LEWIS MD Work Phone: [facility], [place].; [facility] [employer] [facility] [place]. 12-01-2021 15:24-0400 Diastolic blood pressure 83 mm[Hg] Ryder LEWIS MD Work Phone: [facility] HospitalAdamis [facility].; [facility] [employer] [facility] [place]. Comment on above: Patient Position: Sitting; Cuff Location : Left Arm; Cuff Size: Standard 12-01-2021 15:24-0400 Heart rate 87 /min Ryder LEWIS MD Work Phone: [facility] HospitalIndiaMART; [facility] [employer] [facility], [place]. Comment on above: Pattern: Regular 12-01-2021 15:24-0400 Systolic blood pressure 129 mm[Hg] Ryder LEWIS MD Work Phone: [facility] HospitalAdam[facility].; [facility] [employer] [facility] [place]. Comment on above: Patient Position: Sitting; Cuff Location : Left Arm; Cuff Size: Standard 08-02-2021 10:35-0500 Body height 162.56 cm Ryder LEWIS MD Work Phone: [facility] Hospital[facility], [place].; [facility] [employer] [facility], [place]. 08-02-2021 10:35-0500 Body mass index (BMI) [Ratio] 26.26 kg/m2 Ryder LEWIS MD Work Phone: [facility].; [facility] 08-02-2021 10:35-0500 Body surface area Derived from formula 1.75 m2 Ryder LEWIS MD Work Phone: [facility]My[facility].; [facility] 08-02-2021 10:35-0500 Body weight 69.4 kg Ryder LEWIS MD Work Phone: [facility] Hospital[facility].; [facility] 08-02-2021 10:35-0500 Diastolic blood pressure 81 mm[Hg] Ryder LEWIS MD Work Phone: [facility] Hospital[facility]; [facility]. Comment on above: Patient Position: Sitting; Cuff Location : Left Arm; Cuff Size: Standard 08-02-2021 10:35-0500 Heart rate 85 /min Ryder LEWIS MD Work Phone: [facility] Hospital[facility]; [facility] Comment on above: Pattern: Regular 08-02-2021 10:35-0500 Systolic blood pressure 141 mm[Hg] Ryder LEWIS MD Work Phone: [facility].; [facility] Comment on above: Patient Position: Sitting; Cuff Location : Left Arm; Cuff Size: Standard 06-09-2021 13:20-0500 Body height 162.56 cm ANAIS GRATE BLANCA [facility].; [facility]. 06-09-2021 13:20-0500 Body mass index (BMI) [Ratio] 24.55 kg/m2 ANAIS GRATE BLANCA [facility].; [facility]. 06-09-2021 13:20-0500 Body surface area Derived from formula 1.7 m2 ANAIS MARIN BLANCA [facility], [facility].; [facility] [employer] [facility] [place], Inc[employer] 06-09-2021 13:20-0500 Body weight 64.86 kg ANAIS GRATE RN [facility], [facility].; [facility] [employer] [facility] [place], Inc[employer] 06-09-2021 13:20-0500 Diastolic blood pressure 85 mm[Hg] ANAIS GRATE BLANCA [facility], [facility].; [facility], [facility] Comment on above: Patient Position: Sitting; Cuff Location : Left Arm; Cuff Size: Standard 06-09-2021 13:20-0500 Heart rate 97 /min ANAIS GRATE BLANCA [facility], [facility].; [facility] [employer] [facility] [place], Inc[employer] Comment on above: Pattern: Regular 06-09-2021 13:20-0500 Systolic blood pressure 126 mm[Hg] ANAIS GRATE BLANCA [facility], [facility].; [facility] [employer] [facility] [place] Comment on above: Patient Position: Sitting; Cuff Location : Left Arm; Cuff Size: Standard 03-10-2021 13:20-0400 Body height 162.56 cm Michelle Lepe [facility] [place] [employer] [facility] [place] [employer] [facility] [place] 03-10-2021 13:20-0400 Body mass index (BMI) [Ratio] 24.92 kg/m2 Michelle Lepe [facility] [place] [employer] [facility] [place], [facility].; [facility] [employer] [facility] [place] 03-10-2021 13:20-0400 Body surface area Derived from formula 1.71 m2 Michelle Lepe [facility] [place] [employer] [facility] [place].; [facility] [employer] [facility] [place] 03-10-2021 13:20-0400 Body weight 65.86 kg Michelle Lepe [facility] [employer] [facility] [place].; [facility] [employer] [facility] [place] 03-10-2021 13:20-0400 Diastolic blood pressure 85 mm[Hg] Michelle Lepe [facility] [employer] [facility] [place].; [facility] [employer] [facility] [place] Comment on above: Patient Position: Sitting; Cuff Location : Left Arm; Cuff Size: Standard 03-10-2021 13:20-0400 Heart rate 85 /min Michelle Lepe [facility], Inc.; [facility], Inc. Comment on above: Pattern: Regular 03-10-2021 13:20-0400 Systolic blood pressure 126 mm[Hg] Michelle Wei [facility], Inc.; [facility], Inc. Comment on above: Patient Position: Sitting; Cuff Location : Left Arm; Cuff Size: Standard 12-07-2020 11:39-0400 Body height 162.56 cm Michelle Lepe [facility], Inc.; [facility], Inc. 12-07-2020 11:39-0400 Body mass index (BMI) [Ratio] 25.06 kg/m2 Michelle Lepe [facility], [facility].; [facility], [facility]. 12-07-2020 11:39-0400 Body surface area Derived from formula 1.71 m2 Michelle Lepe [facility], [facility].; [facility], [facility]. 12-07-2020 11:39-0400 Body weight 66.23 kg Michelle Lepe [facility], [facility].; [facility], [facility]. 12-07-2020 11:39-0400 Diastolic blood pressure 86 mm[Hg] Michelle Lepe [facility], Inc.; [facility], Inc. Comment on above: Patient Position: Sitting; Cuff Location : Left Arm; Cuff Size: Standard 12-07-2020 11:39-0400 Heart rate 73 /min Michelle Lepe [facility], [facility].; [facility], Inc. Comment on above: Pattern: Regular 12-07-2020 11:39-0400 Systolic blood pressure 121 mm[Hg] Michelle Lepe [facility], Inc.; [facility], Inc. Comment on above: Patient Position: Sitting; Cuff Location : Left Arm; Cuff Size: Standard 09-09-2020 15:52-0500 Body height 162.56 cm Sultana Ruffin [facility], [facility].; [facility], [facility]. 09-09-2020 15:52-0500 Body mass index (BMI) [Ratio] 25.75 kg/m2 Sultana Ruffin RN [facility], Inc.; [facility], Inc. 09-09-2020 15:52-0500 Body surface area Derived from formula 1.73 m2 Sultana Ruffin RN [facility], Inc.; [facility], Inc. 09-09-2020 15:52-0500 Body weight 68.04 kg Sultana Ruffin RN [facility], [facility].; [facility], Inc. 09-09-2020 15:52-0500 Diastolic blood pressure 93 mm[Hg] Sultana [facility].; [facility], [employer]. Comment on above: Patient Position: Sitting; Cuff Location : Left Arm; Cuff Size: Large 09-09-2020 15:52-0500 Heart rate 81 /min Sultana Ruffin RN [facility] [employer] [facility] [place].; [facility], Inc. Comment on above: Pattern: Regular 09-09-2020 15:52-0500 Systolic blood pressure 136 mm[Hg] Sultana Ruffin RN [facility] [employer] [facility] [place].; [facility], Inc. Comment on above: Patient Position: Sitting; Cuff Location : Left Arm; Cuff Size: Large 07-24-2020 15:09-0500 Body height 162.56 cm Michelleoneyda Wei [facility] [employer] [facility] [place].; [facility] [employer] [facility] [place] 07-24-2020 15:09-0500 Body mass index (BMI) [Ratio] 25.23 kg/m2 Michelle Wei [facility] [employer] [facility] [place].; [facility] [employer] [facility] [place] 07-24-2020 15:09-0500 Body surface area Derived from formula 1.72 m2 Michelleoneyda Wei [facility] [place] [employer] [facility] [place].; [facility] [employer] [facility] [place] 07-24-2020 15:09-0500 Body temperature 97.9 [degF] Michelle Lepe [facility] [employer] [facility] [place].; [facility], Inc. Comment on above: Method: Oral 07-24-2020 15:09-0500 Body weight 66.68 kg Michelle Wei [facility], Inc.; [facility], Inc. 07-24-2020 15:09-0500 Diastolic blood pressure 80 mm[Hg] Michelle Lepe [facility], Inc.; [facility], Inc. Comment on above: Patient Position: Sitting; Cuff Location : Left Arm; Cuff Size: Standard 07-24-2020 15:09-0500 Heart rate 85 /min Michelle Wei [facility], Inc.; [facility] [employer] [facility] [place] Comment on above: Pattern: Regular 07-24-2020 15:09-0500 Systolic blood pressure 117 mm[Hg] Michelle Lepe [facility] [employer] [facility] [place].; [facility], Inc. Comment on above: Patient Position: Sitting; Cuff Location : Left Arm; Cuff Size: Standard 06-23-2020 09:32-0500 Body height 162.56 cm An Tillman RN [facility] [employer] [facility] [place].; [facility], Inc[facility] 06-23-2020 09:32-0500 Body mass index (BMI) [Ratio] 24.72 kg/m2 An Tillman RN [facility], Inc.; [facility], Inc. 06-23-2020 09:32-0500 Body surface area Derived from formula 1.7 m2 An Tillman RN [facility] [employer] [facility] [place].; [facility], Inc. 06-23-2020 09:32-0500 Body weight 65.32 kg An Tillman RN [facility] [employer] [facility] [place].; [facility] [employer] [facility] [place] 06-23-2020 09:32-0500 Diastolic blood pressure 86 mm[Hg] An Tillman RN [facility] [employer] [facility] [place].; [facility] [employer] [facility] [place] Comment on above: Patient Position: Sitting; Cuff Location : Left Arm; Cuff Size: Large 06-23-2020 09:32-0500 Heart rate 83 /min An Tillman RN [facility] [employer] [facility] [place].; [place] [employer] [facility] [employer] [facility] [place]. Comment on above: Pattern: Regular 06-23-2020 09:32-0500 Systolic blood pressure 121 mm[Hg] An Tillman RN [facility] [employer] [facility] [place].; [facility] [employer] [facility] [place]. Comment on above: Patient Position: Sitting; Cuff Location : Left Arm; Cuff Size: Large 03-03-2020 10:28-0400 Body height 162.56 cm Ryder LEWIS MD Work Phone: [facility] [employer] [facility] [place].; [employer] [facility] [employer] [facility] [place]. 03-03-2020 10:28-0400 Body mass index (BMI) [Ratio] 23.34 kg/m2 Ryder LEWIS MD Work Phone: [facility] [employer] [facility] [place].; [facility] [employer] [facility] [place]. 03-03-2020 10:28-0400 Body surface area Derived from formula 1.66 m2 Ryder ELWIS MD Work Phone: [facility] [employer] [facility] [place].; [employer] [facility] [employer] [facility] [place]. 03-03-2020 10:28-0400 Body weight 61.69 kg Ryder LEWIS MD Work Phone: [facility] [employer] [facility] [place].; [employer] [facility] [employer] [facility] [place]. 03-03-2020 10:28-0400 Diastolic blood pressure 83 mm[Hg] Ryder LEWIS MD Work Phone: [facility] [place].; [employer] [facility] [employer] [facility] [place]. Comment on above: Patient Position: Sitting; Cuff Location : Left Arm; Cuff Size: Large 03-03-2020 10:28-0400 Heart rate 98 /min Ryder LEWIS MD Work Phone: [facility] Hospital[facility] [place]; [employer] [facility] [employer] [facility] [place]. Comment on above: Pattern: Regular 03-03-2020 10:28-0400 Systolic blood pressure 126 mm[Hg] Ryder LEWIS MD Work Phone: [facility] [place]; [employer] [facility] [employer] [facility] [place] Comment on above: Patient Position: Sitting; Cuff Location : Left Arm; Cuff Size: Large 12-23-2019 15:16-0400 Body height 164.47 cm Ryder LEWIS MD Work Phone: [facility] [employer] [facility] [place]; [employer] [facility] [employer] [facility] [place] 12-23-2019 15:16-0400 Body mass index (BMI) [Ratio] 23.31 kg/m2 Ryder LEWIS MD Work Phone: [facility] [employer] [facility] [place]; [employer] [facility] [employer] [facility] [place] 12-23-2019 15:16-0400 Body surface area Derived from formula 1.69 m2 Ryder LEWIS MD Work Phone: [facility] [employer] [facility] [place]; [employer] [facility] [employer] [facility] [place] 12-23-2019 15:16-0400 Body weight 63.05 kg Ryder LEWIS MD Work Phone: [facility] [employer] [facility] [place]; [employer] [facility] [employer] [facility] [place] 12-23-2019 15:16-0400 Diastolic blood pressure 88 mm[Hg] Ryder LEWIS MD Work Phone: [facility] [employer] [facility] [place]; [employer] [facility] [employer] [facility] [place] Comment on above: Patient Position: Sitting; Cuff Location : Left Arm; Cuff Size: Large 12-23-2019 15:16-0400 Heart rate 88 /min Ryder LEWIS MD Work Phone: [facility] [employer] [facility] [place]; [employer] [facility] [employer] [facility] [place] Comment on above: Pattern: Regular 12-23-2019 15:16-0400 Inhaled oxygen concentration 21 % Ryder LEWIS MD Work Phone: [facility] [employer] [facility] [place]; [employer] [facility] [employer] [facility] [place] Comment on above: Room air 12-23-2019 15:16-0400 SaO2% (BldA) [Mass fraction] 98 % Ryder LEWIS MD Work Phone: [facility] [employer] [facility] [place]; [employer]. 12-23-2019 15:16-0400 Systolic blood pressure 132 mm[Hg] Ryder LEWIS MD Work Phone: [employer]. Comment on above: Patient Position: Sitting; Cuff Location : Left Arm; Cuff Size: Large 04-02-2019 13:31-0400 Body height 164.47 cm Dayna Peters RN [facility] [employer], Inc.; [facility] [employer]. 04-02-2019 13:31-0400 Body mass index (BMI) [Ratio] 23.14 kg/m2 Dayna Peters RN [employer], [employer].; [facility] [employer]. 04-02-2019 13:31-0400 Body surface area Derived from formula 1.68 m2 Dayna Petesr RN [facility] [employer], Inc.; [facility] [employer] Inc. 04-02-2019 13:31-0400 Body temperature 97.9 [degF] Dayna Peters RN [facility] [employer] [facility] [employer]. Comment on above: Method: Oral 04-02-2019 13:31-0400 Body weight 62.6 kg Dayna Peters RN [facility] [employer], Inc.; [facility] [employer], Inc. 04-02-2019 13:31-0400 Diastolic blood pressure 97 mm[Hg] Dayna Peters RN [facility] [employer], Inc.; [facility] [employer]. Comment on above: Patient Position: Sitting; Cuff Location : Left Arm; Cuff Size: Standard 04-02-2019 13:31-0400 Heart rate 85 /min Dayna Peters RN [facility] [employer], Inc.; [employer], Inc. Comment on above: Pattern: Regular 04-02-2019 13:31-0400 Systolic blood pressure 138 mm[Hg] Dayna Peters RN [facility] [employer], Inc.; [employer], Inc. Comment on above: Patient Position: Sitting; Cuff Location : Left Arm; Cuff Size: Standard 11-20-2018 15:22-0400 Body height 164.47 cm Dayna Peters RN [facility] [employer] [facility] [place].; [facility] [employer], Inc. 11-20-2018 15:22-0400 Body mass index (BMI) [Ratio] 23.81 kg/m2 Dayna Peters RN [facility] [employer] [facility] [place].; [facility] [place] [employer], Inc. 11-20-2018 15:22-0400 Body surface area Derived from formula 1.71 m2 Dayna Peters RN [facility] [employer] [facility] [place].; [facility] [employer], Inc. 11-20-2018 15:22-0400 Body temperature 98.2 [degF] Dayna Peters RN [facility] [employer] [facility] [place].; [place] [employer] [facility] [employer], Inc. Comment on above: Method: Oral 11-20-2018 15:220400 Body weight 64.41 kg Dayna Peters RN [facility] [employer] [facility] [place].; [facility] [employer], Inc. 11-20-2018 15:22-0400 Diastolic blood pressure 89 mm[Hg] Dayna Peters RN [facility] [employer] [facility] [place].; [place] [employer] [facility] [employer], Inc. Comment on above: Patient Position: Sitting; Cuff Location : Left Arm; Cuff Size: Standard 11-20-2018 15:22-0400 Heart rate 103 /min Dayna Peters RN [facility] [employer] [facility] [place].; [place] [employer] [facility] [employer], [employer]. Comment on above: Pattern: Regular 11-20-2018 15:22-0400 Systolic blood pressure 142 mm[Hg] Dayna Peters RN [facility] [employer] [facility] [place].; [facility] [employer], Inc. Comment on above: Patient Position: Sitting; Cuff Location : Left Arm; Cuff Size: Standard 10-02-2018 13:24-0400 Body height 164.47 cm Dayna Peters RN [facility] [employer] [facility] [place].; [facility] [employer], [employer] 10-02-2018 13:24-0400 Body mass index (BMI) [Ratio] 23.31 kg/m2 Dayna Peters RN [facility] [employer] [facility] [place].; [facility] [place] [employer], Inc. 10-02-2018 13:24-0400 Body surface area Derived from formula 1.69 m2 Dayna Peters RN [facility] [employer] [facility] [place].; [facility] [employer] [facility] [place] 10-02-2018 13:24-0400 Body temperature 97.5 [degF] Dayna Peters RN [facility] [employer] [facility] [place].; [facility] [place] [employer] [facility] [place]. Comment on above: Method: Oral 10-02-2018 13:24-0400 Body weight 63.05 kg Dayna Peters RN [facility] [employer] [facility] [place].; [facility] [employer], Inc. 10-02-2018 13:24-0400 Diastolic blood pressure 89 mm[Hg] Dayna Peters RN [facility] [employer] [facility] [place].; [facility] [employer], Inc. Comment on above: Patient Position: Sitting; Cuff Location : Left Arm; Cuff Size: Standard 10-02-2018 13:24-0400 Heart rate 89 /min Dayna Peters RN [facility] [employer] [facility] [place].; [facility] [employer], [employer]. Comment on above: Pattern: Regular 10-02-2018 13:24-0400 Systolic blood pressure 132 mm[Hg] Dayna Peters RN [facility] [employer] [facility] [place].; [facility] [employer], Inc. Comment on above: Patient Position: Sitting; Cuff Location : Left Arm; Cuff Size: Standard 03-20-2018 11:18-0400 Body height 164.47 cm Dayna Peters RN [facility] [employer] [facility] [place].; [facility] [place] [employer] [facility] [place] 03-20-2018 11:18-0400 Body mass index (BMI) [Ratio] 21.63 kg/m2 Dayna Peters RN [facility] [employer] [facility] [place].; [facility] [place] [employer], Inc. 03-20-2018 11:180400 Body surface area Derived from formula 1.64 m2 Dayna Peters RN [facility] [employer] [facility] [place].; [facility] [place] [employer], Inc. 03-20-2018 11:18-0400 Body temperature 98.2 [degF] Dayna Peters RN [facility] [employer] [facility] [place].; [place] [employer] [facility] [employer], Inc. Comment on above: Method: Oral 03-20-2018 11:18-0400 Body weight 58.51 kg Dayna Peters RN [facility] [employer] [facility] [place].; [facility] [employer], Inc. 03-20-2018 11:18-0400 Diastolic blood pressure 83 mm[Hg] Dayna Peters RN [facility] [employer] [facility] [place].; [facility] [employer] [facility] [place]. Comment on above: Patient Position: Sitting; Cuff Location : Left Arm; Cuff Size: Standard 03-20-2018 11:18-0400 Heart rate 76 /min Dayna Peters RN [facility] [employer] [facility] [place].; [facility] [employer], Inc. Comment on above: Pattern: Regular 03-20-2018 11:18-0400 Systolic blood pressure 145 mm[Hg] Dayna Peters RN [facility] [employer] [facility] [place].; [facility] [employer], [employer]. Comment on above: Patient Position: Sitting; Cuff Location : Left Arm; Cuff Size: Standard 09-19-2017 11:030400 Body height 163.83 cm ANITRA WEI [employer] [facility] [place].; [place] [employer], [employer] 09-19-2017 11:03-0400 Body mass index (BMI) [Ratio] 21.46 kg/m2 ANITRA WEI [employer] [facility] [place].; [facility] [employer], Inc. 09-19-2017 11:03-0400 Body surface area Derived from formula 1.62 m2 ANITRA WEI [employer], [employer].; [facility] [employer], Inc. 09-19-2017 11:030400 Body weight 57.61 kg ANITRA WEI [facility] [employer], Inc.; [place] [employer] [facility] [employer], Inc. 09-19-2017 11:03-0400 Diastolic blood pressure 94 mm[Hg] ANITRA WEI [employer], [employer].; [place] [employer] [facility] [employer], Inc. Comment on above: Patient Position: Sitting; Cuff Location : Left Arm; Cuff Size: Standard 09-19-2017 11:03-0400 Heart rate 77 /min ANITRA WEI [employer], Inc.; [place] [employer], Inc. Comment on above: Pattern: Regular 09-19-2017 11:03-0400 Systolic blood pressure 142 mm[Hg] ANITRA WEI [facility] [employer] [facility] [place] Inc[employer] [place] [employer] [facility] [place]. Comment on above: Patient Position: Sitting; Cuff Location : Left Arm; Cuff Size: Standard 07-19-2017 16:09-0500 Body height 163.83 cm Sultana Ruffin RN [facility] [employer] [facility] [place].; [facility] [employer], Inc[employer] 07-19-2017 16:09-0500 Body mass index (BMI) [Ratio] 21.63 kg/m2 Sultana Ruffin RN [facility] [employer] [facility] [place] Inc.; [facility] [employer], Inc. 07-19-2017 16:09-0500 Body surface area Derived from formula 1.63 m2 Sultana Ruffin RN [facility] [employer] [facility] [place].; [facility] [employer], Inc. 07-19-2017 16:09-0500 Body temperature 98 [degF] Sultana Ruffin RN [facility] [employer] [facility] [place].; [place] [employer]. Comment on above: Method: Oral 07-19-2017 16:09-0500 Body weight 58.06 kg Sultana Ruffin RN [employer] [facility] [place].; [facility] [employer], Inc. 07-19-2017 16:09-0500 Diastolic blood pressure 85 mm[Hg] Sultana Ruffin RN [facility] [employer] [facility] [place] Inc.; [facility] [employer] Comment on above: Patient Position: Sitting; Cuff Location : Left Arm; Cuff Size: Standard 07-19-2017 16:09-0500 Heart rate 82 /min Sultana Ruffin RN [employer] [facility] [place].; [place] [employer] [facility] [employer]. Comment on above: Pattern: Regular 07-19-2017 16:09-0500 Systolic blood pressure 134 mm[Hg] Sultana Ruffin RN [facility] [employer] [facility] [place], [employer] [place] [employer] [facility] [employer] Comment on above: Patient Position: Sitting; Cuff Location : Left Arm; Cuff Size: Standard 03-21-2017 13:57-0400 Body height 162.56 cm ANITRA WEI [employer], [employer].; [place] [employer], Inc[employer] 03-21-2017 13:57-0400 Body mass index (BMI) [Ratio] 21.8 kg/m2 ANITRA [facility] [employer], [employer].; [place] [facility] [employer], Inc[employer] 03-21-2017 13:57-0400 Body surface area Derived from formula 1.61 m2 WANDERDmitriy Beatriz SANJUAAN [facility] [employer], [employer].; [place] [employer], Inc. 03-21-2017 13:57-0400 Body weight 57.61 kg WANDERDmitriy Beatriz SANJUANA [facility] [employer], [employer].; [place] [employer], [employer]. 03-21-2017 13:57-0400 Diastolic blood pressure 82 mm[Hg] WANDERDmitriy Beatriz SANJUANA [facility] [employer], [employer].; [place] [employer], [employer]. Comment on above: Patient Position: Sitting; Cuff Location : Left Arm; Cuff Size: Standard 03-21-2017 13:57-0400 Heart rate 96 /min WANDERDmitriy Beatriz SANJUANA [facility] [employer], [employer].; [employer], [employer]. Comment on above: Pattern: Regular 03-21-2017 13:57-0400 Systolic blood pressure 120 mm[Hg] ANITRA [facility] [employer], [employer].; [employer], [employer]. Comment on above: Patient Position: Sitting; Cuff Location : Left Arm; Cuff Size: Standard 02-02-2017 14:17-0400 Body height 162.56 cm Michelle Trinh [employer]stream, Inc.; AveillantEVA OMGPOP, Inc. 02-02-2017 14:17-0400 Body mass index (BMI) [Ratio] 22.14 kg/m2 Michelle Trinh [employer], Inc.; ANN OMGPOP, Inc. 02-02-2017 14:17-0400 Body surface area Derived from formula 1.62 m2 Michelle Trinh [employer], Inc.; [facility] OMGPOP, Inc. 02-02-2017 14:17-0400 Body weight 58.51 kg Michelle Roberth [employer]Cast, Inc.; [facility] OMGPOP, Inc. 02-02-2017 14:17-0400 Diastolic blood pressure 84 mm[Hg] Michelle Wei PonoMusic, Inc.; [facility] OMGPOP, Inc. Comment on above: Patient Position: Sitting; Cuff Location : Left Arm; Cuff Size: Standard 02-02-2017 14:17-0400 Heart rate 80 /min Michelle Wei [employer], Inc.; [facility] OMGPOP, Inc. Comment on above: Pattern: Regular 02-02-2017 14:17-0400 Systolic blood pressure 110 mm[Hg] Michelle Wei [employer], Inc.; [facility] ISVWorld [facility] Downstream, Inc. Comment on above: Patient Position: Sitting; Cuff Location : Left Arm; Cuff Size: Standard 09-20-2016 13:47-0400 Body height 162.56 cm Meera Blinkfire Analtyics, [facility] PonoMusic, Inc.; [facility] OMGPOP, Inc. 09-20-2016 13:47-0400 Body mass index (BMI) [Ratio] 22.14 kg/m2 [facility] [employer]onoMusic, Inc.; [facility] OMGPOP, Inc. 09-20-2016 13:47-0400 Body surface area Derived from formula 1.62 m2 Meera Blinkfire Analty[employer], Inc[facility] PonoMusic, Inc.; [facility] OMGPOP, Inc. 09-20-2016 13:47-0400 Body weight 58.51 kg Meera Blinkfire Analtyics, Inc[facility] PonoMusic, Inc.; [facility] OMGPOP, Inc. 09-20-2016 13:47-0400 Diastolic blood pressure 80 mm[Hg] Meera Blinkfire Analtyics, Inc.[employer]amas [employer], Inc.; [place] OMGPOP, Inc. Comment on above: Patient Position: Sitting; Cuff Location : Left Arm; Cuff Size: Standard 09-20-2016 13:47-0400 Heart rate 84 /min Meera [employer]ex [employer], Inc.; [facility] OMGPOP, Inc. Comment on above: Pattern: Regular 09-20-2016 13:47-0400 Systolic blood pressure 116 mm[Hg] Actionsoft, Inc.; [place] Kraken. Comment on above: Patient Position: Sitting; Cuff Location : Left Arm; Cuff Size: Standard 06-14-2016 13:33-0500 Body height 165.1 cm WANDERDmitriy Beatriz WEI [employer]ace Sem[employer] [facility] [place]MyWerx.; [facility] Kraken. 06-14-2016 13:33-0500 Body mass index (BMI) [Ratio] 21.63 kg/m2 WANDERDmitriy Henderson Intercloud Systems Inc.; [place] ISVWorld [facility] Surgient Inc. 06-14-2016 13:33-0500 Body surface area Derived from formula 1.65 m2 WANDERDmitriy Henderson Mission [employer].; [facility] TerraGo Technologies. 06-14-2016 13:33-0500 Body weight 58.97 kg WANDERDmitriy Henderson Mission [employer].; [place] [employer]. 06-14-2016 13:33-0500 Diastolic blood pressure 99 mm[Hg] WANDERDmitriy Henderson [employer].; [facility] Kraken. Comment on above: Patient Position: Sitting; Cuff Location : Left Arm; Cuff Size: Standard 06-14-2016 13:33-0500 Heart rate 85 /min WANDERDmitriy Beatriz [employer].; [facility] Kraken. Comment on above: Pattern: Regular 06-14-2016 13:33-0500 Systolic blood pressure 136 mm[Hg] WANDERDmitriy Henderson [employer].; [facility] Kraken. Comment on above: Patient Position: Sitting; Cuff Location : Left Arm; Cuff Size: Standard 12-22-2015 14:17-0400 Body height 165.1 cm WANDERDmitriy Henderson Mission [employer].; Gramco, Inc. 12-22-2015 14:17-0400 Body mass index (BMI) [Ratio] 23.63 kg/m2 WANDERDmitriy Henderson [employer]cloud Systems Inc.; Gramco, Inc. 12-22-2015 14:17-0400 Body surface area Derived from formula 1.71 m2 WANDERDmitriy Henderson [employer].; Gramco, Inc. 12-22-2015 14:17-0400 Body weight 64.41 kg ANITRA Beatriz WEI Boreal Genomics Inc.; Gramco, Inc. 12-22-2015 14:17-0400 Diastolic blood pressure 89 mm[Hg] AWNDERDmitriy Henderson SANJUANA Trinh Surgient Inc.; Gramco, Inc. Comment on above: Patient Position: Sitting; Cuff Location : Left Arm; Cuff Size: Standard 12-22-2015 14:17-0400 Heart rate 98 /min WANDERDmitriy Henderson WEI [employer] Inc.; Gramco, Inc. Comment on above: Pattern: Regular 12-22-2015 14:17-0400 Systolic blood pressure 125 mm[Hg] WANDERDmitriy Henderson [employer]cloud [employer] Inc.; Gramco, Inc. Comment on above: Patient Position: Sitting; Cuff Location : Left Arm; Cuff Size: Standard 10-20-2015 13:46-0400 Body height 165.1 cm WANDERDmitriy Henderson WEI TextD[employer].; Gramco, Inc. 10-20-2015 13:46-0400 Body mass index (BMI) [Ratio] 24.96 kg/m2 WANDERDmitriy Henderson [employer].; Gramco, Inc. 10-20-2015 13:46-0400 Body surface area Derived from formula 1.75 m2 WANDERDmitriy Henderson [employer]cloud Systems Inc.; Gramco, Inc. 10-20-2015 13:46-0400 Body weight 68.04 kg WANDERDmitriy Henderson SANJUANA Trinh TerraGo Technologies.; Gramco, Inc. 10-20-2015 13:46-0400 Diastolic blood pressure 92 mm[Hg] WANDERDmitriy Henderson Mission [employer].; Gramco, Measurement Analytics. Comment on above: Patient Position: Sitting; Cuff Location : Left Arm; Cuff Size: Standard 10-20-2015 13:46-0400 Heart rate 94 /min WANDERDmitriy Henderson Mission [employer].; clypd Inc. Comment on above: Pattern: Regular 10-20-2015 13:46-0400 Systolic blood pressure 133 mm[Hg] WANDERDmitriy Henderson [employer]cloud Systems Inc.; Gramco, Measurement Analytics. Comment on above: Patient Position: Sitting; Cuff Location : Left Arm; Cuff Size: Standard 08-18-2015 15:29-0500 Body height 165.1 cm NISHANTVanderbilt Transplant CenterEkahau [facility] [place], Inc.; DocTree [place] CleveX [facility] [place], Inc. 08-18-2015 15:29-0500 Body mass index (BMI) [Ratio] 26.63 kg/m2 [facility] DelawareMedTech Solutions Inc.; Message Missile [facility] [place] CleveX [facility] [place], Measurement Analytics. 08-18-2015 15:29-0500 Body surface area Derived from formula 1.8 m2 [facility] Center[facility] [place]My[facility]erx.; Gramco, Inc. 08-18-2015 15:29-0500 Body weight 72.58 kg [facility] Center[facility] [place]MyWerx.; clypd Inc. 08-18-2015 15:29-0500 Diastolic blood pressure 104 mm[Hg] NISHANT LALY Boreal Genomics Inc.; Gramco, Measurement Analytics. Comment on above: Patient Position: Sitting; Cuff Location : Right Arm; Cuff Size: Standard 08-18-2015 15:29-0500 Heart rate 98 /min NISHANT LALY TextDigger.; Gramco, Inc. Comment on above: Pattern: Regular 08-18-2015 15:29-0500 Systolic blood pressure 151 mm[Hg] NISHANT LALY [employer] Inc.; Gramco, Inc. Comment on above: Patient Position: Sitting; Cuff Location : Right Arm; Cuff Size: Standard 04-21-2015 13:56-0400 Body height 165.1 cm WANDERDmitriy Henderson [employer], Inc.; Gramco, Inc. 04-21-2015 13:56-0400 Body mass index (BMI) [Ratio] 26.13 kg/m2 [facility] Henderson Intercloud Systems Inc.; Gramco, Measurement Analytics. 04-21-2015 13:56-0400 Body surface area Derived from formula 1.78 m2 WANDERDmitriy Beatriz WEI TextD[employer].; Startup Freak. 04-21-2015 13:56-0400 Body weight 71.22 kg WANDERDmitriy Henderson SANJUANA Trinh Surgient Inc.; Gramco, Inc. 04-21-2015 13:56-0400 Diastolic blood pressure 94 mm[Hg] WANDERDmitriy Henderson SANJUANA Trinh TerraGo Technologies.; Gramco, Inc. Comment on above: Patient Position: Sitting; Cuff Location : Left Arm; Cuff Size: Standard 04-21-2015 13:56-0400 Heart rate 91 /min WANDERDmitriy Beatriz Trinh [employer]Go [employer].; Gramco, Measurement Analytics. Comment on above: Pattern: Regular 04-21-2015 13:56-0400 Systolic blood pressure 131 mm[Hg] WANDERDmitriy Henderson SANJUANA Trinh [employer]raGo Technologies.; [employer] Freak. Comment on above: Patient Position: Sitting; Cuff Location : Left Arm; Cuff Size: Standard 03-24-2015 13:52-0400 Body height 165.1 cm WANDERDmitriy Henderson WEI [employer].; Gramco, Inc. 03-24-2015 13:52-0400 Body mass index (BMI) [Ratio] 25.79 kg/m2 WANDERDmitriy Henderson SANJUANA Trinh [employer]raGo Technologies.; Gramco, Inc. 03-24-2015 13:52-0400 Body surface area Derived from formula 1.78 m2 WANDERDmitriy Henderson SANJUANA Trinh [employer]Go [employer].; Gramco, Inc. 03-24-2015 13:52-0400 Body weight 70.31 kg WANDERDmitriy Henderson Mission [employer].; Gramco, Inc. 03-24-2015 13:52-0400 Diastolic blood pressure 96 mm[Hg] WANDERDmitriy Henderson SANJUANA Trinh [employer]raGo Technologies.; Gramco, Measurement Analytics. Comment on above: Patient Position: Sitting; Cuff Location : Left Arm; Cuff Size: Standard 03-24-2015 13:52-0400 Heart rate 76 /min ANITRA Henderson WEI Vivace Sem[employer] [facility] [place]MyWerx.; GradeStack [facility] [place]MyWerx. Comment on above: Pattern: Regular 03-24-2015 13:52-0400 Systolic blood pressure 138 mm[Hg] WANDERDmitriy Henderson WEI TextD[employer].; GradeStack [facility] [place], Inc. Comment on above: Patient Position: Sitting; Cuff Location : Left Arm; Cuff Size: Standard 02-24-2015 09:30-0400 Body height 165.1 cm WANDERDmitriy Henderson Activ Technologies [facility] [place]MyWerx.; clypd [facility]. 02-24-2015 09:30-0400 Body mass index (BMI) [Ratio] 25.96 kg/m2 [facility]DD[facility] Henderson WEI Vivace Semicon[employer] [facility] [place]MyWerx.; Message Missile Agent Ace [place] CleveX [facility] DelawareMedTech Solutions [facility]. 02-24-2015 09:30-0400 Body surface area Derived from formula 1.78 m2 WANDERDmitriy Henderson WEI [employer]ace Sem[employer] [facility] [place]MyWerx.; Message Missile Boreal Genomics [facility]. 02-24-2015 09:30-0400 Body weight 70.76 kg ANITRA Henderson Mission Air.; Message Missile Boreal Genomics [facility]. 02-24-2015 09:30-0400 Diastolic blood pressure 95 mm[Hg] WANDERDmitriy Henderson [employer].; [employer] Freak. Comment on above: Patient Position: Sitting; Cuff Location : Left Arm; Cuff Size: Standard 02-24-2015 09:30-0400 Heart rate 86 /min ANITRA Henderson WEI [employer].; Start[employer] Freak. Comment on above: Pattern: Regular 02-24-2015 09:30-0400 Systolic blood pressure 143 mm[Hg] WANDERDmitriy Henderson [employer].; [employer] Freak. Comment on above: Patient Position: Sitting; Cuff Location : Left Arm; Cuff Size: Standard 01-18-2013 14:13-0400 Body height 170.18 cm Ryder LEWIS MD Work Phone: Agent Ace GamboaAdamis Pharmaceuticals.; Startup Freak. 01-18-2013 14:13-0400 Body mass index (BMI) [Ratio] 23.18 kg/m2 Ryder LEWIS MD Work Phone: [employer]ace [employer] [facility] [place]HemoShear; Derby[employer] [facility] CleveX [facility] [place]MyWerx. 01-18-2013 14:13-0400 Body surface area Derived from formula 1.78 m2 Ryder LEWIS MD Work Phone: Agent Ace GamboaIndiaMART; [employer] [facility] [place]. 01-18-2013 14:13-0400 Body weight 67.13 kg Ryder LEWIS MD Work Phone: Agent Ace Gamb[place]IndiaMART; [employer] [facility] [place]. 01-18-2013 14:13-0400 Diastolic blood pressure 80 mm[Hg] Ryder LEWIS MD Work Phone: Agent Ace Gamb[place]IndiaMART; ECOtality Comment on above: Patient Position: Sitting; Cuff Location : Left Arm; Cuff Size: Standard 01-18-2013 14:13-0400 Heart rate 73 /min Ryder LEWIS MD Work Phone: [employer]; [employer] [facility] Document Security Systems Comment on above: Pattern: Regular 01-18-2013 14:13-0400 Systolic blood pressure 125 mm[Hg] Ryder LEWIS MD Work Phone: Agent Ace GamboaIndiaMART; DocTree [place] Document Security Systems Comment on above: Patient Position: Sitting; Cuff Location : Left Arm; Cuff Size: Standard Encounters Encounter Date Encounter Type Care Provider Facility Start: 11-15-2023 End: 11-15-2023 Historical Summary Ryder LEWIS MD Work Phone: [facility] Agent Ace GamboaEkahau [facility] [place]H[facility] Start: 10-19-2023 End: 10-19-2023 Lab Only Ryder LEWIS MD Work Phone: [facility] [employer] Start: 09-21-2023 End: 09-21-2023 Medication Refill/Order Ryder LEWIS MD Work Phone: [facility] CleveX [facility] [place]emo[facility] Start: 09-04-2023 Review Ryder LEWIS MD Work Phone: [facility] [place] Start: 09-01-2023 End: 09-01-2023 Transition of Care [facility] [place] Start: 06-16-2023 End: 06-16-2023 Follow-up encounter Ryder LEWIS MD Work Phone: [facility] [employer]Go [employer] Start: 06-15-2023 End: 06-20-2023 ambulatory [facility] Facility:A Start: 06-15-2023 End: 06-15-2023 Office outpatient visit 25 minutes Ryder LEWIS MD Work Phone: [facility] [employer] Start: 02-20-2023 End: 02-20-2023 ambulatory [facility] Start: 12-19-2022 End: 12-19-2022 Office outpatient visit 15 minutes Ry[facility] LE[facility]IS MD [facility] Start: 07-20-2022 End: 07-20-2022 Office outpatient visit 15 minutes Ryder LEWIS MD Work Phone: [facility] [employer] Start: 06-08-2022 End: 06-08-2022 Results Review Ryder LEWIS MD Work Phone: [facility] [employer] Start: 05-23-2022 End: 05-23-2022 Results Review Ryder LEWIS MD Work Phone: [facility] [employer] Start: 05-12-2022 End: 05-12-2022 Results Review [facility] Start: 05-11-2022 End: 05-11-2022 Patient encounter status [facility] Start: 05-11-2022 End: 05-11-2022 Periodic preventive med est patient 40-64yrs Ryder LEWIS MD Work Phone: [facility] Start: 03-10-2022 End: 03-10-2022 ambulatory Ryder LEWIS [facility] Start: 03-09-2022 End: 03-09-2022 Office outpatient visit 15 minutes Ryder LEWIS MD Work Phone: [facility] Start: 12-01-2021 End: 12-01-2021 Office outpatient visit 15 minutes Ryder LEWIS MD Work Phone: [facility] Start: 08-06-2021 End: 08-06-2021 Results Review Ryder LEWIS MD [facility] Start: 08-02-2021 End: 08-02-2021 Historical Summary Ryder LEWIS MD [facility] Start: 08-02-2021 End: 08-02-2021 Office outpatient visit 15 minutes Ryder LEWIS MD [facility] Start: 06-09-2021 End: 06-09-2021 Office outpatient visit 15 minutes Ryder LEWIS MD Work Phone: [facility] Start: 03-19-2021 End: 03-20-2021 Medication Refill/Order Ryder LEWIS MD Work Phone: [facility]. Start: 03-10-2021 End: 03-10-2021 Office outpatient visit 15 minutes Ryder LEWIS MD Work [facility]: [facility]. Start: 12-07-2020 End: 12-07-2020 Addendum to visit Ryder LEWIS MD Work Phone: [facility]. Start: 12-07-2020 End: 12-07-2020 Office outpatient visit 15 minutes Ryder LEWIS MD Work Phone: [facility]. Start: 09-09-2020 End: 09-09-2020 Office outpatient visit 15 minutes Ryder LEWIS MD Work Phone: [facility] [place]. Start: 07-26-2020 End: 07-26-2020 Results Review Ryder LEWIS MD Work Phone: [facility] [employer]. Start: 07-24-2020 End: 07-24-2020 Office outpatient visit 15 minutes Ryder LEWIS MD Work Phone: [facility]. Start: 06-23-2020 End: 06-23-2020 Office outpatient visit 15 minutes Ryder LEWIS MD Work Phone: [facility] [place]. Start: 03-03-2020 End: 03-03-2020 Office outpatient visit 15 minutes Ryder LEWIS MD Work Phone: [place] ISVWorld [facility] TerraGo [employer]. Start: 02-18-2020 End: 02-18-2020 Lab Only Ryder LEWIS MD Work Phone: [facility] Start: 12-23-2019 End: 12-23-2019 Office outpatient visit 15 minutes Ryder LEWIS MD Work Phone: [place] ISVWorld [facility] [employer]Go [employer]. Start: 10-07-2019 End: 10-07-2019 Office outpatient visit 15 minutes Ryder LEWIS MD Work Phone: [facility]. Start: 04-02-2019 End: 04-02-2019 Office outpatient visit 15 minutes Ryder LEWIS MD Work Phone: [facility] Gamboa [place]. Start: 01-15-2019 End: 01-15-2019 Medication Refill/Order Ryder LEWIS MD Work [facility]: [facility]. Start: 11-21-2018 End: 11-21-2018 Results Review Ryder LEWIS MD Work Phone: [facility] [place]. Start: 11-20-2018 End: 11-20-2018 Office outpatient visit 15 minutes Ryder LEWIS MD Work Phone: [facility] [place]. Start: 10-03-2018 End: 10-03-2018 Results Review Ryder LEWIS MD Work Phone: [facility] [employer] [place]. Start: 10-02-2018 End: 10-02-2018 Office outpatient visit 15 minutes Ryder LEWIS MD Work Phone: [facility] [employer] [place]. Start: 03-20-2018 End: 03-20-2018 Office outpatient visit 15 minutes Ryder LEWIS MD Work Phone: [facility] [employer] [place]. Start: 09-19-2017 End: 09-19-2017 Office outpatient visit 15 minutes Ryder LEWIS MD Work Phone: [facility] [employer] [place]. Start: 07-19-2017 End: 07-19-2017 Office outpatient visit 15 minutes Ryder LEWIS MD Work Phone: [facility] Gamboa [place]. Start: 03-21-2017 End: 03-21-2017 Office outpatient visit 15 minutes Ryder LEWIS MD Work Phone: [place] [employer] Start: 02-20-2017 End: 02-20-2017 Medication Refill/Order Ryder LEWIS MD Work Phone: [place] [employer]ken. Start: 02-02-2017 End: 02-02-2017 Office outpatient visit 10 minutes Ryder LEWIS MD Work Phone: [place] [employer]. Start: 12-29-2016 End: 12-29-2016 Medication Refill/Order Ryder LEWIS MD Work Phone: [place] ISVWorld [facility] TerraGo [employer]. Start: 09-20-2016 End: 09-20-2016 Office outpatient visit 15 minutes Ryder LEWIS MD Work Phone: [place] [employer] Start: 06-27-2016 End: 06-27-2016 Medication Refill/Order Ryder LEWIS MD Work Phone: [place] [employer] Start: 06-27-2016 End: 06-27-2016 Medication Refill/Order Ryder LEWIS MD Work Phone: [employer]. Start: 06-16-2016 End: 06-16-2016 Follow-up encounter Ryder LEWIS MD Work Phone: [employer]. Start: 06-14-2016 End: 06-14-2016 Office outpatient visit 15 minutes Ryder LEWIS MD Work Phone: [place] [employer]. Start: 12-22-2015 End: 12-22-2015 Office outpatient visit 10 minutes Ryder LEWIS MD Work Phone: [employer]. Start: 10-20-2015 End: 10-20-2015 Office outpatient visit 15 minutes Ryder LEWIS MD Work Phone: [employer]. Start: 10-10-2015 End: 10-10-2015 Medication Refill/Order Ryder LEWIS MD Work Phone: [employer] Start: 08-18-2015 End: 08-18-2015 Office outpatient visit 10 minutes Ryder LEWIS MD Work Phone: [employer] Start: 06-03-2015 End: 06-04-2015 Medication Refill/Order Ryder LEWIS MD Work Phone: [employer] Start: 04-21-2015 End: 04-21-2015 Office outpatient visit 10 minutes Ryder LEWIS MD Work Phone: [employer] Start: 03-24-2015 End: 03-24-2015 Office outpatient visit 10 minutes Ryder LEWIS MD Work Phone: [employer] Start: 03-20-2015 End: 03-22-2015 Medication Refill/Order Ryder LEWIS MD Work Phone: [employer] Start: 02-24-2015 End: 02-24-2015 Office outpatient visit 15 minutes Ryder LEWIS MD Work Phone: [employer] Start: 01-18-2013 End: 01-18-2013 Patient encounter procedure Ryder LEWIS MD Work Phone: [employer] Start: 03-07-2012 End: 03-07-2012 Injection/immunization only Ryder LEWIS MD Work Phone: [employer] Procedures Date Procedure Procedure Detail Performing Clinician Start: 06-15-2023 End: 06-15-2023 Collj & interpj physiol data min 30 min ea 30 d EMA MOODY-C Work Phone: Start: 06-15-2023 End: 06-15-2023 Dischrg meds reconciled w/current med list EMA MOODY-C Work Phone: Start: 12-19-2022 End: 12-19-2022 Dischrg meds reconciled w/current med list Ryder LEWIS MD Work Phone: Start: 12-19-2022 End: 12-19-2022 Collj & interpj physiol data min 30 min ea 30 d Ryder LEWIS MD Work Phone: Start: 07-20-2022 End: 07-20-2022 Dischrg meds reconciled w/current med list Ryder LEWIS MD Work Phone: Start: 06-08-2022 End: 06-08-2022 Oncology colorectal screening joey 10 dna markrs Ryder LEWIS MD Work Phone: Start: 06-02-2022 End: 06-02-2022 Cologuamichelle COREA Comment on above: Negative. Start: 05-18-2022 End: 05-18-2022 Microscopic examination of cervical Papanicolaou smear ANAIS MARIN RN Comment on above: Negative. Start: 05-11-2022 End: 05-11-2022 Dischrg meds reconciled w/current med list Ryder LEWIS MD Work Phone: Start: 03-09-2022 End: 03-09-2022 Dischrg meds reconciled w/current med list Ryder LEWIS MD Work Phone: Start: 03-09-2022 End: 03-09-2022 Collj & interpj physiol data min 30 min ea 30 d Ryder LEWIS MD Work Phone: Start: 12-01-2021 End: 12-01-2021 Dischrg meds reconciled w/current med list Ryder LEWIS MD Work Phone: Start: 08-02-2021 End: 08-02-2021 Dischrg meds reconciled w/current med list Ryder LEWIS MD Work Phone: Start: 06-09-2021 End: 06-09-2021 Dischrg meds reconciled w/current med list Ryder LEWIS MD Work Phone: Start: 06-09-2021 End: 06-09-2021 Collj & interpj physiol data min 30 min ea 30 d Ryder LEWIS MD Work Phone: Start: 03-10-2021 End: 03-10-2021 Dischrg meds reconciled w/current med list Ryder LEWIS MD Work Phone: Start: 12-07-2020 End: 12-07-2020 Dischrg meds reconciled w/current med list Ryder LEWIS MD Work Phone: Start: 12-07-2020 End: 12-07-2020 Urinary Incontinence ANAIS MARIN RN Comment on above: Negative. Start: 10-14-2020 End: 10-14-2020 Vaccination given ANAIS MARIN RN Comment on above: Had immunization. Di scount Drug [place]/Thayer, 2nd dose was 11/11/2020 Moderna Booster June 2021 Start: 09-09-2020 End: 09-09-2020 Dischrg meds reconciled w/current med list Ryder LEWIS MD Work Phone: Start: 06-23-2020 End: 06-23-2020 Dischrg meds reconciled w/current med list Rydre LEWIS MD Work Phone: Start: 03-03-2020 End: 03-03-2020 Dischrg meds reconciled w/current med list Ryder LEWIS MD Work Phone: Start: 12-23-2019 End: 12-23-2019 Dischrg meds reconciled w/current med list Ryder LEWIS MD Work Phone: Start: 04-02-2019 End: 04-02-2019 Dischrg meds reconciled w/current med list TRISTON REY MD Work Phone: Start: 11-20-2018 End: 11-20-2018 Dischrg meds reconciled w/current med list TRISTON REY MD Work Phone: Start: 10-02-2018 End: 10-02-2018 Dischrg meds reconciled w/current med list TRISTON REY MD Work Phone: Start: 10-02-2018 End: 10-02-2018 Collj & interpj physiol data min 30 min ea 30 d TRISTON REY MD Work Phone: Start: 12-29-2016 End: 12-29-2016 Collj & interpj physiol data min 30 min ea 30 d TRISTON REY MD Work Phone: Start: 10-20-2015 End: 10-20-2015 Collj & interpj physiol data min 30 min ea 30 d TRISTON REY MD Work Phone: Back surg 2009 lump excised Jennifer Woodruff RMA Discussed Mammogram Jennifer COREA Comment on above: 05/04/2022 - order gi dilip Plan of Treatment Date Care Activity Detail Author Start: 12-14-2023 FQ visit, estab pt Medical; ESTABLISHED PATIENT ROUTINE VISIT - [facility] [employer] [facility] [place] Start: 14-Dec-2023 09:45-04:00 AI KELLY Appointment Request [facility] [employer] [facility] [place] Start: 12-07-2023 FQ visit, estab pt [facility] [employer] Start: 10-19-2023 Mthfr gene analysis common variants MTHFR GENE ([id number]) Start: 19-Oct-2023 16:34-04:00 Request [facility] [place].; [facility]. Start: 05-11-2022 Screening digital breast tomosynthesis bi SCREENING MAMMOGRAPHY WITH TOMOSYNTHESIS ([id number]) 3D - Bilateral Start: 11-May-2022 Intent [facility].; [facility] Start: 03-09-2022 Screening digital breast tomosynthesis bi SCREENING MAMMOGRAPHY WITH TOMOSYNTHESIS ([id number]) 3D - Bilateral Start: 09-Mar-2022 [facility] [employer] [facility] [place].; [facility]. Start: 03-09-2022 Iaad ia cryptosporidium [facility] [facility] [place].; [facility]. Start: 04-02-2019 Collj & interpj physiol data min 30 min ea 30 d QUERY OARRS REPORT ([id number]) Start: 02-Apr-2019 Intent [facility] [facility] [place].; [facility]. Start: 04-02-2019 Patient Education HYPERTENSION Indication: Hypertension goal BP (blood pressure) < 130/80 Start: 02-Apr-2019 Instruction Type: Patient Education [facility] [place].; [facility]. Start: 02-02-2017 Patient Education POISON HARDEEP Indication: Poison Hardeep Dermatitis (Renamed from Contact dermatitis due to poison hardeep) Start: 02-Feb-2017 Instruction Type: Patient Education [facility] [place].; [facility]. Start: 09-20-2016 Patient Education HYPERTENSION Indication: Hypertension goal BP (blood pressure) < 130/80 Start: 20-Sep-2016 Instruction Type: Patient Education [facility] [place] [employer] [facility] [place]. Start: 06-14-2016 Patient Education HYPERTENSION Indication: Hypertension goal BP (blood pressure) < 130/80 Start: 14-Jun-2016 Instruction Type: Patient Education [facility] [place] [employer] [facility] [place]. Start: 12-22-2015 Patient Education HYPERTENSION Indication: Hypertension goal BP (blood pressure) < 130/80 Start: 22-Dec-2015 Instruction Type: Patient Education [facility] [place] [employer] [facility] [place]. Start: 10-20-2015 Patient Education HYPERTENSION Indication: Hypertension goal BP (blood pressure) < 130/80 Start: 20-Oct-2015 Instruction Type: Patient Education [facility] [employer] [facility] [employer] [facility] [place], Inc[employer] Start: 08-18-2015 End: 08-18-2015 Collj & interpj physiol data min 30 min ea 30 d QUERY OARRS REPORT ([id number]) Date: 18-Aug-2015 [place] [employer]; [facility] [employer] Start: 08-18-2015 Patient Education DEPRESSION Indication: Depression, acute Start: 18-Aug-2015 Instruction Type: Patient Education [facility]; [facility] [employer] Start: 02-24-2015 Patient Education DEPRESSION Indication: Depression, acute Start: 24-Feb-2015 Instruction Type: Patient Education [facility]; [place] [employer] [facility] [place]. Immunizations Immunization Date Immunization Notes Care Provider Fa cili 06-02-2021 COVID-Moderna (100 MCG/0.5 ML) Ryder LEWIS MD Work Phone: [facility] [employer]; [facility] [place] Comment on above: Moderna Booster 11-11-2020 COVID-Moderna (100 MCG/0.5 ML) Ryder LEWIS MD Work Phone: [facility] [employer]; [facility] [employer] 10-14-2020 COVID-Moderna (100 MCG/0.5 ML) Ryder LEWIS MD Work Phone: [facility] [employer]; [facility] [employer] 03-20-2018 *IMMUNIZATION ADMIN ([id number]) Ryder LEWIS MD Work Phone: [facility] [employer]; [facility] [employer] 03-20-2018 tetanus toxoid, redu pavithra diphtheria toxoid, and acellular pertussis vaccine, adsorbed Ryder LEWIS MD Work Phone: [facility] [place]; [facility] [place]. Comment on above: Site: Left DeltoidVI S Given: * Tdap (Tetanus, Diphtheria, Pertussis) (08/26/14) 01-19-2012 hepatitis A vaccine, adult dosage Ryder LEWIS MD Work Phone: [facility] [place]; [facility] [employer] [facility] [place] 04-21-2008 hepatitis A vaccine, adult dosage Ryder LEWIS MD Work Phone: [facility]; [facility] 04-21-2008 tetanus and diphther ia toxoids, adsorbed, preservative free, for adult use (2 Lf of tetanus toxoid and 2 Lf of diphtheria toxoid) Ryder LEWIS MD Work Phone: [facility]; [facility] influenza virus vaccine, unspecified formulation Ryder LEWIS MD Work Phone: [facility]; [facility] Comment on above: Refused. 06/2023 Payers Date Payer Category Payer Unknown [id number] 1970 Unknown [id number] 1970 Unknown [id number] 1970 Unknown [id number] Unknown [employer] Social History Date Type Detail Facility Alcohol Use: Alcohol Use: ; 1 to 7 drinks per week. Drinks wine. 1 drink per occasion. [facility]; [facility] Caffeine Use - Current Caffeine Use - Cur rent [facility]; [facility] Living situation: Living situati on: ; Lives with spouse. [facility]; [facility] Tobacco use: Tobacco use: ; Never smoker. [facility]; [facility] Female [facility]; [facility] Work Phone: Drinks wine [facility]; [facility] Inc[facility] Work Phone: Never smoked tobacco [facility] goyoSaint [facility] Health SystemMed[facility].; [facility]. Work Phone: Lives with spouse Ziggy Smith [facility].; [facility]. Work Phone: Clinical Note 05-23-2023 Note Date & Type Note Facility 05-23-2023 Note Returned pt's call, left voice message; office does not have referral yet. Please call referring physician's office request referral/ records be faxed to [phone]. Once received, the office will be able to schedule an appointment. [facility] Summary Purpose Family History Brother (s) Status:Active Comments:4. 1 de ceased dev delay, kidney 6 years old; Daughter (s) Status:Active Comments:2. Father Status:Active Comments:b. 1949 depression ? heart rhythm Mother Status:Active Comments:. 1949 HTN Sister (s) Status:Active Comments:1. In [employer]. chronic fatigue (severe); Son (s) Status:Active Comments:1. Brother (s) Status:Active Comments:4. 1 de ceased dev delay, kidney 6 years old; Daughter (s) Status:Active Comments:2. Father Status:Active Comments:b. 1947 depression ? heart rhythm Mother Status:Active Comments:. 1949 HTN Sister (s) Status:Active Comments:1. In [employer]. chronic fatigue (severe); Son (s) Status:Active Comments:1. Brother (s) Status:Active Comments:4. 1 de ceased dev delay, kidney 6 years old; Daughter (s) Status:Active Comments:2. Father Status:Active Comments:b. 1947 depression ? heart rhythm Mother Status:Active Comments:b. 1949 HTN Sister (s) Status:Active Comments:1. In [employer]. chronic fatigue (severe); Son (s) Status:Active Comments:1. Brother (s) Status:Active Comments:4. 1 de ceased dev delay, kidney 6 years old; Daughter (s) Status:Active Comments:2. Father Status:Active Comments:b. 1947 depression ? heart rhythm Mother Status:Active Comments:b. 1949 HTN Sister (s) Status:Active Comments:1. In [facility]. chronic fatigue (severe); Son (s) Status:Active Comments:1. Brother (s) Status:Active Comments:4. 1 de ceased dev delay, kidney 6 years old; Daughter (s) Status:Active Comments:2. Father Status:Active Comments:. 1947 depression ? heart rhythm Mother Status:Active Comments:. 1947 HTN Sister (s) Status:Active Comments:1. In [facility]. chronic fatigue (severe); Son (s) Status:Active Comments:1. Brother (s) Status:Active Comments:4. 1 de ceased dev delay, kidney 6 years old; Daughter (s) Status:Active Comments:2. Father Status:Active Comments:1947 depression ? heart rhythm Mother Status:Active Comments:1947 HTN Sister (s) Status:Active Comments:1. In [facility]. chronic fatigue (severe); Son (s) Status:Active Comments:1. Brother (s) Status:Active Comments:4. 1 de ceased dev delay, kidney 6 years old; Daughter (s) Status:Active Comments:2. Father Status:Active Comments:1947 depression ? heart rhythm Mother Status:Active Comments:1947 HTN Sister (s) Status:Active Comments:1. In [facility]. chronic fatigue (severe); Son (s) Status:Active Comments:1. Brother (s) Status:Active Comments:4. 1 de ceased dev delay, kidney 6 years old; Daughter (s) Status:Active Comments:2. Father Status:Active Comments:. 1947 depression ? heart rhythm Mother Status:Active Comments:1947 HTN Sister (s) Status:Active Comments:1. In [facility]. chronic fatigue (severe); Son (s) Status:Active Comments:1. Brother (s) Status:Active Comments:4. 1 de ceased dev delay, kidney 6 years old; Daughter (s) Status:Active Comments:2. Father Status:Active Comments:1947 depression ? heart rhythm Mother Status:Active Comments:1947 HTN Sister (s) Status:Active Comments:1. In [facility]. chronic fatigue (severe); Son (s) Status:Active Comments:1. Brother (s) Status:Active Comments:4. 1 de ceased dev delay, kidney 6 years old; Daughter (s) Status:Active Comments:2. Father Status:Active Comments:. 1947 depression ? heart rhythm Mother Status:Active Comments:. 1947 HTN Sister (s) Status:Active Comments:1. In [facility]. chronic fatigue (severe); Son (s) Status:Active Comments:1. Brother (s) Status:Active Comments:4. 1 de ceased dev delay, kidney 6 years old; Daughter (s) Status:Active Comments:2. Father Status:Active Comments:. 1947 depression ? heart rhythm Mother Status:Active Comments:1947 HTN Sister (s) Status:Active Comments:1. In [facility]. chronic fatigue (severe); Son (s) Status:Active Comments:1. Brother (s) Status:Active Comments:4. 1 de ceased dev delay, kidney 6 years old; Daughter (s) Status:Active Comments:2. Father Status:Active Comments:. 1947 depression ? heart rhythm Mother Status:Active Comments:1947 HTN Sister (s) Status:Active Comments:1. In [facility]. chronic fatigue (severe); Son (s) Status:Active Comments:1. Brother (s) Status:Active Comments:4. 1 de ceased dev delay, kidney 6 years old; Daughter (s) Status:Active Comments:2. Father Status:Active Comments:. 1947 depression ? heart rhythm Mother Status:Active Comments:1947 HTN Sister (s) Status:Active Comments:1. In [facility]. chronic fatigue (severe); Son (s) Status:Active Comments:1. Brother (s) Status:Active Comments:4. 1 de ceased dev delay, kidney 6 years old; Daughter (s) Status:Active Comments:2. Father Status:Active Comments:. 1947 depression ? heart rhythm Mother Status:Active Comments:1947 HTN Sister (s) Status:Active Comments:1. In [facility]. chronic fatigue (severe); Son (s) Status:Active Comments:1. Advance Directives No Advanced Directives Records FoundNo Advanced Directives Records FoundNo Advanced Directives Records Found Additional Source Comments INFORMATION SOURCE (unrecogn ized section and content) DATE CREATED AUTHOR 02/20/2023 Nicholas Rey [facility] DATE CREATED AUTHOR AUTHOR'S ORGANIZ ATION 05/26/2023 [facility] DATE CREATED AUTHOR AUTHOR'S ORGANIZ ATION 06/23/2023 [facility] ([place]) FOR RECORDS PERTAINING TO PATIENTS WHO ARE OR HAVE BEEN ENROLLED IN A CHEMICAL DEPENDENCY/SUBSTANCEABUSE PROGRAM, SOME INFORMATION MAY BE OMITTED. This clinical summary was aggregated from multiple sources. Caution should be exercised in using it in the provision of clinical care. This summary normalizes information from multiple sources, and as a consequence, information in this document may materially change the coding, format and clinical context of patient data. In addition, data may be omitted in some cases. CLINICAL DECISIONS SHOULD BE BASED ON THE PRIMARY CLINICAL RECORDS. [employer] [facility]. provides no warranty or guarantee of the accuracy or completeness of information in this document.
== END | disposition home or self-care (01) ==
LOC: MTLAB 11:46
PROVIDERS: PCP Family Medicine; Referring Provider Internal Medicine Rheumatology; Visit Provider Internal Medicine Rheumatology
DX: M06.4 Inflammatory polyarthropathy (principal); I10 Essential (primary) hypertension
CPT/HCPCS: 36415; 72170; 80053; 81374; 85025; 86200; 86431; 86706; 86803; 87340